=== PATIENT | male | born 1965 | race Caucasian/White ===

== ENCOUNTER 2020-12-09 08:41 | Inpatient (IN) | payer BC ==
[2020-12-09 09:20] LABS: ANION GAP 17.4 mmol/L (5-15); CHLORIDE,CL 100 mmol/L (98-107); SODIUM,NA 137 mmol/L (136-145)
--- NOTE | 2020-12-09 09:32 | EDM.PDOC ---
ED HPI GENERAL MEDICAL PROBLEM - General Chief Complaint: General Stated Complaint: SEVERE NAUSEA Time Seen by Provider: 12/09/20 09:00 Source of Information: Reports: Patient, EMS History Limitations: Reports: No Limitations - History of Present Illness INITIAL COMMENTS - FREE TEXT/NARRATIVE: Patient presents with lightheadedness, cough, vomiting and possible LOC. He is covid positive and has been symptomatic for 2+ weeks; just off quarantine yesterday. Had aches and fever too but gone now. Still has the cough. The last 3-4 days he has had nausea and lightheadedness after eating breakfast; today he vomited also after eating a couple bites. He thinks he passed out for a bit and doesn't remember everything but his called ambulance. He doesn't get lightheaded standing after sitting or lying. He hasn't seen a provider since covid symptoms started. - Related Data Allergies Allergy/AdvReac Type Severity Reaction Status Date / Time No Known Allergies Allergy Verified 12/09/20 08:46 Home Meds: Home Meds . [No Known Home Meds] 02/11/16 [History] Past Medical History - Past Health History Medical/Surgical History: Denies Medical/Surgical History HEENT History: Reports: None Cardiovascular History: Reports: None Respiratory History: Reports: None Gastrointestinal History: Reports: None Other Gastrointestinal History: Bright Red blood after BM x 1 Genitourinary History: Reports: None Musculoskeletal History: Reports: None Neurological History: Reports: None Psychiatric History: Reports: None Endocrine/Metabolic History: Reports: None Hematologic History: Reports: None Immunologic History: Reports: None Oncologic (Cancer) History: Reports: None Dermatologic History: Reports: None - Infectious Disease History Infectious Disease History: Reports: Chicken Pox, Novel Coronavirus Social & Family History - Family History GI: Reports: Colon Polyps - Tobacco Use Tobacco Use Status *Q: Never Tobacco User - Caffeine Use Caffeine Use: Reports: None - Recreational Drug Use Recreational Drug Use: No ED ROS GENERAL - Review of Systems Review Of Systems: See Below Constitutional: Reports: Weakness, Fatigue. Denies: Fever HEENT: Denies: Ear Pain, Throat Pain, Vision Change Respiratory: Reports: Shortness of Breath, Cough. Denies: Sputum Cardiovascular: Reports: Lightheadedness, Syncope. Denies: Chest Pain GI/Abdominal: Reports: Diarrhea (just once a day), Nausea, Vomiting. Denies: Abdominal Pain : Denies: Dysuria, Flank Pain Musculoskeletal: Denies: Neck Pain, Shoulder Pain, Arm Pain, Back Pain, Hand Pain Skin: Denies: Cyanosis, Jaundice, Mottled, Pallor, Diaphoresis Neurological: Reports: Dizziness. Denies: Confusion, Headache, Seizure, Trouble Speaking, Difficulty Walking Psychiatric: Denies: Agitation, Anxiety, Confusion ED EXAM, GENERAL - Physical Exam Exam: See Below Exam Limited By: No Limitations General Appearance: Alert, WD/WN, No Apparent Distress Eye Exam: Bilateral Eye: EOMI, Normal Inspection, PERRL Ears: Normal External Exam, Hearing Grossly Normal Nose: Normal Inspection, No Blood Throat/Mouth: Normal Inspection, Normal Lips, Normal Voice, No Airway Compromise Head: Atraumatic, Normocephalic Neck: Normal Inspection, Full Range of Motion Respiratory/Chest: No Respiratory Distress, No Accessory Muscle Use, Crackles (bilat lungs throughout). No: Rhonchi, Wheezing, Stridor Cardiovascular: Regular Rate, Rhythm, No Murmur GI/Abdominal: Normal Bowel Sounds, Soft, Non-Tender, No Organomegaly, No Distention Back Exam: Normal Inspection, Full Range of Motion. No: CVA Tenderness (L), CVA Tenderness (R) Extremities: Normal Inspection, Normal Range of Motion Neurological: Alert, Oriented, Normal Cognition, No Motor/Sensory Deficits Psychiatric: Normal Affect, Normal Mood Skin Exam: Warm, Dry, Intact, Normal Color, No Rash Course - Vital Signs Last Recorded V/S: Last Vital Signs Temp 97.7 F 12/09/20 08:47 Pulse 67 12/09/20 09:42 Resp 17 12/09/20 09:42 BP 118/79 12/09/20 09:42 Pulse Ox 93 L 12/09/20 09:42 - Orders/Labs/Meds Orders: Active Orders 24 hr Category Date Time Status Patient Status [ADT] Routine ADT 12/09/20 09:52 Ordered CULTURE BLOOD [BC] Stat Lab 12/09/20 09:16 Ordered CULTURE BLOOD [BC] Stat Lab 12/09/20 09:16 Ordered Blood Culture x2 Reflex Set [OM.PC] Stat Oth 12/09/20 09:16 Ordered Isolation [COMM] Routine Oth 12/09/20 08:50 Ordered Labs: Laboratory Tests 1112/09/20 12/09/20 Range/Units 08:30 08:30 09:20 WBC 3.96 L (5.00-10.00) 10^3/uL RBC 5.64 (4.50-6.00) 10^6/uL Hgb 16.4 (13.0-17.0) g/dL Hct 46.4 (40.0-52.0) % MCV 82.3 (82.0-92.0) fL MCH 29.1 (27.0-31.0) pg MCHC 35.3 (32.0-36.0) g/dL RDW 11.6 (11.5-14.5) % Plt Count 159 (150-400) 10^3/uL MPV 10.0 (7.4-10.4) fL Immature Gran % (Auto) 0.3 (0.0-5.0) % Neut % (Auto) 71.9 H (50.0-70.0) % Lymph % (Auto) 21.7 (20.0-40.0) % [place] % (Auto) 6.1 (2.0-8.0) % Eos % (Auto) 0.0 L (1.0-3.0) % Baso % (Auto) 0.0 (0.0-1.0) % Neut # (Auto) 2.85 (2.50-7.00) 10^3/uL Lymph # (Auto) 0.86 L (1.00-4.00) 10^3/uL [place] # (Auto) 0.24 (0.10-0.80) 10^3/uL Eos # (Auto) 0.00 L (0.10-0.30) 10^3/uL Baso # (Auto) 0.00 (0.00-0.10) 10^3/uL Immature Gran # (Auto) 0.01 (0.00-0.50) 10^3/uL Sodium 137 (136-145) mmol/L Potassium 3.4 L (3.5-5.1) mmol/L Chloride 100 (98-107) mmol/L Carbon Dioxide 23.0 (21.0-32.0) mmol/L Anion Gap 17.4 H (5-15) mmol/L BUN 15 (7-18) mg/dL Creatinine 0.97 (0.51-1.17) mg/dL Est Cr Clr Drug Dosing 76.74 mL/min Estimated GFR (MDRD) > 60 mL/min Glucose 113 (70-140) mg/dL Lactic Acid 1.1 (0.4-2.0) mmol/L Calcium 7.6 L (8.7-10.3) mg/dL Total Bilirubin 0.6 (0.2-1.0) mg/dL AST 36 (15-37) U/L ALT 49 (14-63) U/L Alkaline Phosphatase 76 (46-116) U/L Total Protein 6.4 (6.4-8.2) g/dL Albumin 2.87 L (3.40-5.00) g/dL Meds: Medications Discontinued Medications Generic Name Dose Route Start Last Admin Trade Name Freq PRN Reason Stop Dose Admin Ceftriaxone Sodium 1 gm 12/09/20 09:45 Ceftriaxone 1 Gm Vial IVPUSH 12/09/20 09:46 ONETIME ONE - Re-Assessments/Exams Free Text/Narrative Re-Assessment/Exam: 12/09/20 09:53 CXR confirms bilateral infiltrates. Sats dropped to 87-89% on RA after we stopped oxygen for about 10 minutes. On 2 liters still only 92-94%. WBC normal. Lactate and blood cultures pending. Discussed findings and recommendations with patient and he is okay with staying in the hospital; he really wants to get some sleep. Discussed case with Altagracia Chaidez NP who accepted for admission. Patient stable; Rocephin given in ER. Departure - Departure Time of Disposition: 09:50 Disposition: Admitted As Inpatient 65 Condition: Good Clinical Impression: COVID-19, Hypoxemia requiring supplemental oxygen Pneumonia Qualifiers: Pneumonia type: due to unspecified organism Laterality: bilateral Lung loc ation: unspecified part of lung Qualified Code(s): J18.9 - Pneumonia, unspecified organism - Discharge Information Referrals: Kathleen Motta NP [Primary Care Provider] - Forms: ED Department Discharge Sepsis Event Note (ED) - Evaluation Sepsis Screening Result: No Definite Risk - Focused Exam Vital Signs: Vital Signs Temp Pulse Resp BP Pulse Ox 12/09/20 09:42 67 17 118/79 93 L 12/09/20 09:22 64 20 132/74 93 L 12/09/20 09:00 70 16 136/70 95 12/09/20 08:47 97.7 F 68 20 137/69 96 12/09/20 08:45 67 14 124/76 96 - My Orders Last 24 Hours: My Active Orders 12/09/20 08:50 Isolation [COMM] Routine 12/09/20 09:16 CULTURE BLOOD [BC] Stat CULTURE BLOOD [BC] Stat Blood Culture x2 Reflex Set [OM.PC] Stat 12/09/20 09:52 Patient Status [ADT] Routine - Assessment/Plan Last 24 Hours: My Active Orders 12/09/20 08:50 Isolation [COMM] Routine 12/09/20 09:16 CULTURE BLOOD [BC] Stat CULTURE BLOOD [BC] Stat Blood Culture x2 Reflex Set [OM.PC] Stat 12/09/20 09:52 Patient Status [ADT] Routine
[2020-12-09] MEDS ORDERED: cefTRIAXone 1 GM Vial IVPUSH ONE (09:45)
--- NOTE | 2020-12-09 10:07 | CR ---
[id number] RAD/RAD Chest PA And Lateral EXAM: RAD Chest PA And Lateral INDICATION: COVID + COMPARISON: None. DISCUSSION: Cardiomediastinal silhouette is normal in size and contour. No infiltrate, effusion, pneumothorax, or edema. Patchy pulmonary infiltrates bilaterally most pronounced lung bases. IMPRESSION: Patchy pulmonary infiltrates bilaterally most pronounced at the lung bases. Findings are likely infectious/inflammatory in nature as can be seen with atypical/viral pneumonia Yamil Romo DO 12/09/20 1006 Thank you for allowing us to participate in the care of your patient.
--- NOTE | 2020-12-09 10:57 | PCM.HP.2 ---
H&P History of Present Illness - General Date of Service: 12/09/20 Admit Problem/Dx: Admission Diagnosis/Problem Admission Diagnosis/Problem Hypoxemia requiring supplemental oxygen - Related Data Allergies/Adverse Reactions: Allergies Allergy/AdvReac Type Severity Reaction Status Date / Time No Known Allergies Allergy Verified 12/09/20 08:46 Home Medications: Home Meds . [No Known Home Meds] 02/11/16 [History] Past Medical History - Past Health History Medical/Surgical History: Denies Medical/Surgical History HEENT History: Reports: None Cardiovascular History: Reports: None Respiratory History: Reports: None Gastrointestinal History: Reports: None Other Gastrointestinal History: Bright Red blood after BM x 1 Genitourinary History: Reports: None Musculoskeletal History: Reports: None Neurological History: Reports: None Psychiatric History: Reports: None Endocrine/Metabolic History: Reports: None Hematologic History: Reports: None Immunologic History: Reports: None Oncologic (Cancer) History: Reports: None Dermatologic History: Reports: None - Infectious Disease History Infectious Disease History: Reports: Chicken Pox, Novel Coronavirus Social & Family History - Family History GI: Reports: Colon Polyps - Tobacco Use Tobacco Use Status *Q: Never Tobacco User - Caffeine Use Caffeine Use: Reports: None - Recreational Drug Use Recreational Drug Use: No H&P Review of Systems - Review of Systems: Review Of Systems: See Below General: Reports: Fever (Last week and then reoccurred on Monday and Monday), Fatigue, Decreased Appetite. Denies: Chills HEENT: Reports: Headaches (previously, now resolved), Sore Throat (previously now resolved) Pulmonary: Reports: Cough. Denies: Shortness of Breath, Wheezing, Pleuritic Chest Pain Cardiovascular: Reports: Lightheadedness, Syncope (syncopal episode this morning) Gastrointestinal: Reports: Diarrhea, Nausea (only in the morning) Genitourinary: Reports: No Symptoms Musculoskeletal: Reports: No Symptoms Skin: Reports: No Symptoms Psychiatric: Reports: No Symptoms Neurological: Reports: No Symptoms Hematologic/Lymphatic: Reports: No Symptoms Immunologic: Reports: No Symptoms Exam - Exam Exam: See Below - Vital Signs Vital Signs: Last Vital Signs Temp 98.2 F 12/09/20 10:28 Pulse 70 12/09/20 10:28 Resp 20 12/09/20 10:28 BP 138/69 12/09/20 10:28 Pulse Ox 94 L 12/09/20 10:28 Weight: 166 lb - Exam Quality Assessment: Supplemental Oxygen, DVT Prophylaxis General: Alert, Oriented, Cooperative. No: Mild Distress HEENT: Conjunctiva Clear, Mucosa Moist & [place] Neck: Supple, Trachea Midline Lungs: Decreased Breath Sounds, Crackles. No: Wheezing Cardiovascular: Regular Rate, Regular Rhythm. No: Systolic Murmur GI/Abdominal Exam: Normal Bowel Sounds, Soft, Non-Tender, No Distention (Male) Exam: Deferred Rectal (Males) Exam: Deferred Back Exam: Normal Inspection, Full Range of Motion Extremities: Normal Inspection, Normal Range of Motion, Non-Tender, No Pedal Edema, Normal Capillary Refill Peripheral Pulses: 2+: Dorsalis Pedis (L), Dorsalis Pedis (R) Skin: Warm, Dry, Intact Neuro Extensive - Mental Status: Alert, Oriented x3, Normal Mood/Affect, Normal Cognition, Memory Intact Psychiatric: Alert, Normal Affect, Normal Mood - Patient Data Lab Results Last 24 hrs: Laboratory Results - last 24 hr 12/09/20 12/09/20 12/09/20 Range/Units 08:30 08:30 08:30 WBC 3.96 L (5.00-10.00) 10^3/uL RBC 5.64 (4.50-6.00) 10^6/uL Hgb 16.4 (13.0-17.0) g/dL Hct 46.4 (40.0-52.0) % MCV 82.3 (82.0-92.0) fL MCH 29.1 (27.0-31.0) pg MCHC 35.3 (32.0-36.0) g/dL RDW 11.6 (11.5-14.5) % Plt Count 159 (150-400) 10^3/uL MPV 10.0 (7.4-10.4) fL Immature Gran % (Auto) 0.3 (0.0-5.0) % Neut % (Auto) 71.9 H (50.0-70.0) % Lymph % (Auto) 21.7 (20.0-40.0) % [place] % (Auto) 6.1 (2.0-8.0) % Eos % (Auto) 0.0 L (1.0-3.0) % Baso % (Auto) 0.0 (0.0-1.0) % Neut # (Auto) 2.85 (2.50-7.00) 10^3/uL Lymph # (Auto) 0.86 L (1.00-4.00) 10^3/uL [place] # (Auto) 0.24 (0.10-0.80) 10^3/uL Eos # (Auto) 0.00 L (0.10-0.30) 10^3/uL Baso # (Auto) 0.00 (0.00-0.10) 10^3/uL Immature Gran # (Auto) 0.01 (0.00-0.50) 10^3/uL Sodium 137 (136-145) mmol/L Potassium 3.4 L (3.5-5.1) mmol/L Chloride 100 (98-107) mmol/L Carbon Dioxide 23.0 (21.0-32.0) mmol/L Anion Gap 17.4 H (5-15) mmol/L BUN 15 (7-18) mg/dL Creatinine 0.97 (0.51-1.17) mg/dL Est Cr Clr Drug Dosing 76.74 mL/min Estimated GFR (MDRD) > 60 mL/min Glucose 113 (70-140) mg/dL Lactic Acid (0.4-2.0) mmol/L Calcium 7.6 L (8.7-10.3) mg/dL Total Bilirubin 0.6 (0.2-1.0) mg/dL AST 36 (15-37) U/L ALT 49 (14-63) U/L Alkaline Phosphatase 76 (46-116) U/L C-Reactive Protein 5.3 H (0.0-0.9) mg/dL Total Protein 6.4 (6.4-8.2) g/dL Albumin 2.87 L (3.40-5.00) g/dL 12/09/20 Range/Units 09:20 WBC (5.00-10.00) 10^3/uL RBC (4.50-6.00) 10^6/uL Hgb (13.0-17.0) g/dL Hct (40.0-52.0) % MCV (82.0-92.0) fL MCH (27.0-31.0) pg MCHC (32.0-36.0) g/dL RDW (11.5-14.5) % Plt Count (150-400) 10^3/uL MPV (7.4-10.4) fL Immature Gran % (Auto) (0.0-5.0) % Neut % (Auto) (50.0-70.0) % Lymph % (Auto) (20.0-40.0) % [place] % (Auto) (2.0-8.0) % Eos % (Auto) (1.0-3.0) % Baso % (Auto) (0.0-1.0) % Neut # (Auto) (2.50-7.00) 10^3/uL Lymph # (Auto) (1.00-4.00) 10^3/uL [place] # (Auto) (0.10-0.80) 10^3/uL Eos # (Auto) (0.10-0.30) 10^3/uL Baso # (Auto) (0.00-0.10) 10^3/uL Immature Gran # (Auto) (0.00-0.50) 10^3/uL Sodium (136-145) mmol/L Potassium (3.5-5.1) mmol/L Chloride (98-107) mmol/L Carbon Dioxide (21.0-32.0) mmol/L Anion Gap (5-15) mmol/L BUN (7-18) mg/dL Creatinine (0.51-1.17) mg/dL Est Cr Clr Drug Dosing mL/min Estimated GFR (MDRD) mL/min Glucose (70-140) mg/dL Lactic Acid 1.1 (0.4-2.0) mmol/L Calcium (8.7-10.3) mg/dL Total Bilirubin (0.2-1.0) mg/dL AST (15-37) U/L ALT (14-63) U/L Alkaline Phosphatase (46-116) U/L C-Reactive Protein (0.0-0.9) mg/dL Total Protein (6.4-8.2) g/dL Albumin (3.40-5.00) g/dL Result Diagrams: 12/10/20 08:20 12/10/20 08:20 Sepsis Event Note - Evaluation Sepsis Screening Result: No Definite Risk - Focused Exam Vital Signs: Vital Signs Temp Pulse Resp BP Pulse Ox 12/09/20 10:28 98.2 F 70 20 138/69 94 L 12/09/20 09:42 67 17 118/79 93 L 12/09/20 09:22 64 20 132/74 93 L 12/09/20 09:00 70 16 136/70 95 12/09/20 08:47 97.7 F 68 20 137/69 96 12/09/20 08:45 67 14 124/76 96 Problem List Initiated/Reviewed/Updated: Yes Orders Last 24hrs: Active Orders 24 hr Category Date Time Status Patient Status [ADT] Routine ADT 12/09/20 09:52 Active CULTURE BLOOD [BC] Stat Lab 12/09/20 09:20 Received CULTURE BLOOD [BC] Stat Lab 12/09/20 09:35 Received Blood Culture x2 Reflex Set [OM.PC] Stat Oth 12/09/20 09:16 Ordered Isolation [COMM] Routine Oth 12/09/20 08:50 Ordered Assessment/Plan Comment:: HPI summary: Christopher is a 55yM patient who arrived to the ED by EMS this morning for concerns of COVID-19 symptoms including nausea and vomiting this morning after breakfast and reported syncopal episode of short duration. Patient had initial onset of COVID symptoms on 11/29 and tested positive on 12/04 at [facility]. Patient c/o feeling nauseated the past 3-4 mornings at breakfas t and lightheaded in the morning. Patient had headache, sore throat, body aches and fever initially, had reoccurrence of fever over he weekend. He continues to cough. Patient's called [place] ambulance after possible syncopal episode. Of note patient is not vaccinated. ED course: Patient 87-88% on room air, vitals otherwise stable; afebrile. No orthostatic hypotension symptoms. Lung sounds with crackles t/o. CXR indicates bilateral infiltrates consistent with infectious/inflammatory process which can be seen with atypical or viral pneumonia. BC x 2 ordered. WBC 3.96 (N 71.9%), Hgb 16.4, Plt 159. Na 137, K 3.4, BUN 15, Creatinine 0.97, LFTs WNL, Albumin 2.87, CRP 5.3, Lactic acid 1.1. Rocephin 1g given in ER for possible bacterial pneumonia. Patient admitted inpatient status. Hospital course: 12/09/20: Patient denies significant SOB or wheezing, has been coughing. He is most concerned about the nausea in the morning and the possible syncopal episode this morning. Vitals stable, afebrile. Lung sounds diminished with crackles bilaterally. Exam otherwise rather unremarkable. Repeat labs in am. Hospitalization problems and plan: # COVID-19 # Pneumonia - will provide empiric antibiotic treatment due to mild neutrophilia, blood cultures pending # Hypoxia # Elevated CRP - Supplemental oxygen to maintain O2 sat > 92% - BC x 2 pending - Continue rocephin 1g IV daily - Remdesevir 200mg IV x 1 dose, then 100mg IV daily x 4 doses - Dexamethasone 6mg PO daily - Lovenox 40mg subq daily - Adjunctive therapy: Zinc, vitamin C and vitamin D - Repeat labs in am CBC, CMP, CRP and Mg # Hypokalemia, mild - KDur 20 mEq today Chronic, stable conditions: # Hyperlipidiemia - no medications; LDL 109 09/04/20 # GERD - continue prilosec 20mg PO daily # Obesity Hospitalization details: # FEN: Oral fluids, K 3.4 - oral supplementation, regular diet # PPX: Lovenox 40mg subq daily; prilosec 20mg PO daily # Code status: FULL CODE # Emergency contact: Karlie [phone] # Disposition: Patient admitted to inpatient status as I anticipate > 2 midnights for treatment of COVID-19, Pneumonia, requiring supplemental oxygen at 2-3L to maintain O2 sat > 92%. - Mortality Measure Prognosis:: Good
[2020-12-09] MEDS ORDERED: REMDESIVIR 200 MG in Sodium Chloride 0.9% 250 ML IV ONE (11:26)
[2020-12-09] MEDS ORDERED: Potassium Chloride 10 MEQ Tab.ER PO ONE (11:28)
[2020-12-09] MEDS ORDERED: Sodium Chloride 0.9% 50 ML IV SCH (12:00)
[2020-12-09] MEDS: Dexamethasone 4 MG Tab PO SCH (12:04)
[2020-12-09] MEDS: Enoxaparin 40 MG/0.4 ML Syringe SUBCUT SCH (12:05)
[2020-12-09] MEDS: Zinc (Zinc Gluconate) 50 MG Tab PO SCH (12:57)
[2020-12-09] MEDS: Cholecalciferol (Vitamin D3) 25 MCG Tab PO SCH (12:57)
[2020-12-09] MEDS: Ascorbic Acid 500 MG Tab PO SCH ×2 (12:58→20:38)
[2020-12-10] MEDS: Ascorbic Acid 500 MG Tab PO SCH ×3 (08:12→20:00)
[2020-12-10] MEDS: Dexamethasone 4 MG Tab PO SCH (08:12)
[2020-12-10] MEDS: Zinc (Zinc Gluconate) 50 MG Tab PO SCH (08:12)
[2020-12-10] MEDS: Cholecalciferol (Vitamin D3) 25 MCG Tab PO SCH (08:12)
[2020-12-10 08:50] LABS: ANION GAP 17.6 mmol/L (5-15); CHLORIDE,CL 104 mmol/L (98-107); SODIUM,NA 139 mmol/L (136-145)
--- NOTE | 2020-12-10 11:22 | PCM.PN ---
- General Info Date of Service: 12/10/20 Functional Status: Reports: Pain Controlled, Tolerating Diet, Ambulating, Urinating, Incentive Spirometry. Denies: New Symptoms - Review of Systems General: Reports: Fatigue, Appetite (improved today). Denies: Fever, Chills HEENT: Reports: No Symptoms. Denies: Headaches, Sore Throat Pulmonary: Reports: Cough. Denies: Shortness of Breath, Wheezing Cardiovascular: Reports: No Symptoms. Denies: Edema, Lightheadedness Gastrointestinal: Reports: Other (heartburn overnight). Denies: Nausea Genitourinary: Reports: No Symptoms Musculoskeletal: Reports: No Symptoms Skin: Reports: No Symptoms Neurological: Reports: No Symptoms. Denies: Syncope Psychiatric: Reports: No Symptoms - Patient Data Vitals - Most Recent: Last Vital Signs Temp 98.1 F 12/10/20 10:06 Pulse 69 12/10/20 10:06 Resp 20 12/10/20 10:06 BP 131/76 12/10/20 10:06 Pulse Ox 95 12/10/20 10:06 Weight - Most Recent: 171 lb 1.259 oz I&O - Last 24 Hours: Intake & Output 12/09/20 12/10/20 12/10/20 22:59 06:59 14:59 Intake Total 400 100 Balance 400 100 Lab Results Last 24 Hours: Laboratory Results - last 24 hr 12/10/20 12/10/20 Range/Units 08:20 08:20 WBC 6.78 (5.00-10.00) 10^3/uL RBC 5.23 (4.50-6.00) 10^6/uL Hgb 15.1 (13.0-17.0) g/dL Hct 44.3 (40.0-52.0) % MCV 84.7 (82.0-92.0) fL MCH 28.9 (27.0-31.0) pg MCHC 34.1 (32.0-36.0) g/dL RDW 11.6 (11.5-14.5) % Plt Count 202 (150-400) 10^3/uL MPV 9.5 (7.4-10.4) fL Immature Gran % (Auto) 0.1 (0.0-5.0) % Neut % (Auto) 84.5 H (50.0-70.0) % Lymph % (Auto) 10.8 L (20.0-40.0) % Davidson % (Auto) 4.6 (2.0-8.0) % Eos % (Auto) 0.0 L (1.0-3.0) % Baso % (Auto) 0.0 (0.0-1.0) % Neut # (Auto) 5.73 (2.50-7.00) 10^3/uL Lymph # (Auto) 0.73 L (1.00-4.00) 10^3/uL Davidson # (Auto) 0.31 (0.10-0.80) 10^3/uL Eos # (Auto) 0.00 L (0.10-0.30) 10^3/uL Baso # (Auto) 0.00 (0.00-0.10) 10^3/uL Immature Gran # (Auto) 0.01 (0.00-0.50) 10^3/uL Sodium 139 (136-145) mmol/L Potassium 4.1 (3.5-5.1) mmol/L Chloride 104 (98-107) mmol/L Carbon Dioxide 21.5 (21.0-32.0) mmol/L Anion Gap 17.6 H (5-15) mmol/L BUN 15 (7-18) mg/dL Creatinine 0.78 (0.51-1.17) mg/dL Est Cr Clr Drug Dosing 95.43 mL/min Estimated GFR (MDRD) > 60 mL/min Glucose 120 (70-140) mg/dL Calcium 8.2 L (8.7-10.3) mg/dL Magnesium 2.3 (1.8-2.4) mg/dL Total Bilirubin 0.5 (0.2-1.0) mg/dL AST 37 (15-37) U/L ALT 59 (14-63) U/L Alkaline Phosphatase 71 (46-116) U/L C-Reactive Protein 5.9 H (0.0-0.9) mg/dL Total Protein 6.4 (6.4-8.2) g/dL Albumin 2.71 L (3.40-5.00) g/dL Prem Results Last 24 Hours: Microbiology 12/09/20 09:35 Aerobic Blood Culture - Preliminary Blood - Venous NO GROWTH AFTER 1 DAY Anaerobic Blood Culture - Preliminary NO GROWTH AFTER 1 DAY 12/09/20 09:20 Aerobic Blood Culture - Preliminary Blood - Venous - Lab Draw NO GROWTH AFTER 1 DAY Anaerobic Blood Culture - Preliminary NO GROWTH AFTER 1 DAY Med Orders - Current: Current Medications Ascorbic Acid (Ascorbic Acid 500 Mg Tab) 1,[address] [facility] Last Admin: 12/10/20 08:12 Dose: 1,000 mg Documented by: Ceftriaxone Sodium (Ceftriaxone 1 Gm Vial) [address] [facility] Cholecalciferol (Cholecalciferol (Vitamin D3) 25 Mcg Tab) [address] [facility] Last Admin: 12/10/20 08:12 Dose: 25 mcg Documented by: Dexamethasone (Dexamethasone 4 Mg Tab) [address] [facility] Last Admin: 12/10/20 08:12 Dose: 6 mg Documented by: Enoxaparin Sodium (Enoxaparin 40 Mg/0.4 Ml Syringe) [address] [facility] Last Admin: 12/09/20 12:05 Dose: 40 mg Documented by: Sodium Chloride (Normal Saline) 50 mls @ 125 mls/hr IV ASDIRECTED [facility] Remdesivir 100 mg/ Sodium (Chloride) 250 mls @ 250 mls/hr IV Q24H [facility] Zinc Gluconate (Zinc (Zinc Gluconate) 50 Mg Tab) [address] [facility] Last Admin: 12/10/20 08:12 Dose: 50 mg Documented by: Discontinued Medications Ceftriaxone Sodium (Ceftriaxone 1 Gm Vial) 1 gm IVPUSH ONETIME ONE Stop: 12/09/20 09:46 Last Admin: 12/09/20 10:21 Dose: 1 gm Documented by: Remdesivir 200 mg/ Sodium (Chloride) 250 mls @ 250 mls/hr IV ONETIME ONE Stop: 12/09/20 11:27 Last Admin: 12/09/20 13:02 Dose: 250 mls/hr Documented by: Potassium Chloride (Potassium Chloride 10 Meq Tab.Er) 20 meq PO ONETIME ONE Stop: 12/09/20 11:29 Last Admin: 12/09/20 12:04 Dose: 20 meq Documented by: - Exam Quality Assessment: Supplemental Oxygen, DVT Prophylaxis General: Alert, Oriented, Cooperative, No Acute Distress HEENT: Pupils Equal, Pupils Reactive, Mucous Membr. Moist/[place] Neck: Supple, Trachea Midline Lungs: Decreased Breath Sounds, Crackles. No: Rhonchi, Wheezing Cardiovascular: Regular Rate, Regular Rhythm, No Murmurs GI/Abdominal Exam: Normal Bowel Sounds, Soft, Non-Tender, No Distention (Male) Exam: Deferred Back Exam: Normal Inspection, Full Range of Motion Extremities: Normal Inspection, Normal Range of Motion, Non-Tender, No Pedal Edema, Normal Capillary Refill Peripheral Pulses: 2+: Dorsalis Pedis (L), Dorsalis Pedis (R) Skin: Warm, Dry, Intact Neurological: No New Focal Deficit Psy/Mental Status: Alert, Normal Affect, Normal Mood - Patient Data Lab Results Last 24 hrs: Laboratory Results - last 24 hr 12/10/20 12/10/20 Range/Units 08:20 08:20 WBC 6.78 (5.00-10.00) 10^3/uL RBC 5.23 (4.50-6.00) 10^6/uL Hgb 15.1 (13.0-17.0) g/dL Hct 44.3 (40.0-52.0) % MCV 84.7 (82.0-92.0) fL MCH 28.9 (27.0-31.0) pg MCHC 34.1 (32.0-36.0) g/dL RDW 11.6 (11.5-14.5) % Plt Count 202 (150-400) 10^3/uL MPV 9.5 (7.4-10.4) fL Immature Gran % (Auto) 0.1 (0.0-5.0) % Neut % (Auto) 84.5 H (50.0-70.0) % Lymph % (Auto) 10.8 L (20.0-40.0) % Davidson % (Auto) 4.6 (2.0-8.0) % Eos % (Auto) 0.0 L (1.0-3.0) % Baso % (Auto) 0.0 (0.0-1.0) % Neut # (Auto) 5.73 (2.50-7.00) 10^3/uL Lymph # (Auto) 0.73 L (1.00-4.00) 10^3/uL Davidson # (Auto) 0.31 (0.10-0.80) 10^3/uL Eos # (Auto) 0.00 L (0.10-0.30) 10^3/uL Baso # (Auto) 0.00 (0.00-0.10) 10^3/uL Immature Gran # (Auto) 0.01 (0.00-0.50) 10^3/uL Sodium 139 (136-145) mmol/L Potassium 4.1 (3.5-5.1) mmol/L Chloride 104 (98-107) mmol/L Carbon Dioxide 21.5 (21.0-32.0) mmol/L Anion Gap 17.6 H (5-15) mmol/L BUN 15 (7-18) mg/dL Creatinine 0.78 (0.51-1.17) mg/dL Est Cr Clr Drug Dosing 95.43 mL/min Estimated GFR (MDRD) > 60 mL/min Glucose 120 (70-140) mg/dL Calcium 8.2 L (8.7-10.3) mg/dL Magnesium 2.3 (1.8-2.4) mg/dL Total Bilirubin 0.5 (0.2-1.0) mg/dL AST 37 (15-37) U/L ALT 59 (14-63) U/L Alkaline Phosphatase 71 (46-116) U/L C-Reactive Protein 5.9 H (0.0-0.9) mg/dL Total Protein 6.4 (6.4-8.2) g/dL Albumin 2.71 L (3.40-5.00) g/dL Result Diagrams: 12/10/20 08:20 12/10/20 08:20 Prem Results Last 24 hrs: Microbiology 12/09/20 09:35 Aerobic Blood Culture - Preliminary Blood - Venous NO GROWTH AFTER 1 DAY Anaerobic Blood Culture - Preliminary NO GROWTH AFTER 1 DAY 12/09/20 09:20 Aerobic Blood Culture - Preliminary Blood - Venous - Lab Draw NO GROWTH AFTER 1 DAY Anaerobic Blood Culture - Preliminary NO GROWTH AFTER 1 DAY Sepsis Event Note - Evaluation Sepsis Screening Result: No Definite Risk - Focused Exam Vital Signs: Vital Signs Temp Pulse Resp BP Pulse Ox 12/10/20 10:06 98.1 F 69 20 131/76 95 12/10/20 06:29 97.5 F 58 L 20 125/76 95 12/10/20 02:56 97.9 F 65 20 114/72 92 L - Problem List Review Problem List Initiated/Reviewed/Updated: Yes - My Orders Last 24 Hours: My Active Orders 12/09/20 11:30 Enoxaparin [Lovenox] 40 mg SUBCUT Q24H dexAMETHasone 6 mg PO DAILY 12/09/20 12:11 Resuscitation Status Routine 12/09/20 12:45 Ascorbic Acid [Vitamin C] 1,000 mg PO BID Cholecalciferol (Vitamin D3) [Vitamin D3] 25 mcg PO DAILY Zinc Gluconate [Zinc] 50 mg PO DAILY 12/09/20 14:20 Vital Signs [RC] 03,07,11,15,19,23 12/09/20 14:21 Activity as Tolerated [RC] .Routine 12/09/20 Dinner Regular Diet [DIET] 12/10/20 11:06 Incentive Spirometry [RT Incentive Spirometry] [RC] Q1HWA 12/10/20 11:30 Remdesivir 100 mg Sodium Chloride 0.9% [Normal Saline] 250 ml IV Q24H cefTRIAXone [Rocephin] 1 gm IVPUSH Q24H 12/11/20 05:11 CBC WITH AUTO DIFF [HEME] AM CMP [COMPREHENSIVE METABOLIC PN,CMP] [CHEM] AM CRP [C-REACTIVE PROTEIN] [CHEM] AM MG [MAGNESIUM] [CHEM] AM - Plan Plan:: HPI summary: Christopher is a 55yM patient who arrived to the ED by EMS this morning for concerns of COVID-19 symptoms including nausea and vomiting this morning after breakfast and reported syncopal episode of short duration. Patient had initial onset of COVID symptoms on 11/29 and tested positive on 12/04 at [facility]. Patient c/o feeling nauseated the past 3-4 mornings at [facility] and lightheaded in the morning. Patient had headache, sore throat, body aches and fever initially, had reoccurrence of fever over he weekend. He continues to cough. Patient's called [place] ambulance after possible syncopal episode. Of note patient is not vaccinated. ED course: Patient 87-88% on room air, vitals otherwise stable; afebrile. No orthostatic hypotension symptoms. Lung sounds with crackles t/o. CXR indicates bilateral infiltrates consistent with infectious/inflammatory process which can be seen with atypical or viral pneumonia. BC x 2 ordered. WBC 3.96 (N 71.9%), Hgb 16.4, Plt 159. Na 137, K 3.4, BUN 15, Creatinine 0.97, LFTs WNL, Albumin 2.87, CRP 5.3, Lactic acid 1.1. Rocephin 1g given in ER for possible bacterial pneumonia. Patient admitted inpatient status. Hospital course: 12/09/20: Patient denies significant SOB or wheezing, has been coughing. He is most concerned about the nausea in the morning and the possible syncopal episode this morning. Vitals stable, afebrile. Lung sounds diminished with crackles bilaterally. Exam otherwise rather unremarkable. Repeat labs in am. 12/10/20: No calls overnight. Denies nausea this am, appetite improving. No lightheadedness symptoms or concerns of syncope today. Cough continues. Reports heartburn overnight, took prilosec for 2 weeks and then changed his diet, did not have EGD as recommended by physician in [place] due to concerns of getting COVID in hospital. Vitals stable, afebrile. Remains on 2-3L NC to maintain O2 sat > 92%. Lung sounds diminished, crackles bilaterally. No significant rhonchi or wheeze. WBC 6.78, Hgb 15.1, Plt 202. Na 139, K 4.1, BUN 15, Creatinine 0.78, Mg 2.3, LFT's WNL, CRP 5.9. BC NGTD x 1 day. Repeat labs in am. Hospitalization problems and plan: # COVID-19 # Pneumonia - will provide empiric antibiotic treatment due to mild neutrophilia, blood cultures pending, CXR not classic for COVID pneumonia and reoccurrence of fever over the weekend # Hypoxia # Elevated CRP - 5.9 today - Supplemental oxygen to maintain O2 sat > 92% - BC x 2 NGTD x 1 day - Continue rocephin 1g IV daily - Continue Remdesevir 200mg IV x 1 dose, then 100mg IV daily x 4 doses until 12/13/20 - Continue Dexamethasone 6mg PO daily - Continue Lovenox 40mg subq daily - Continue Adjunctive therapy: Zinc, vitamin C and vitamin D - Incentive spirometry 10x/hr while awake - Repeat labs in am CBC, CMP, CRP and Mg # Hypokalemia, mild. - K 4.1 today - Repeat in am Chronic, stable conditions: # Hyperlipidiemia - no medications; LDL 109 09/04/20 # GERD - continue PPI 20mg PO daily; consider EGD as outpatient to evaluate heartburn symptoms # Obesity Hospitalization details: # FEN: Oral fluids, electrolytes stable, regular diet # PPX: Lovenox 40mg subq daily; pantoprazole 20mg PO daily # Code status: FULL CODE # Emergency contact: Karlie Beyer [phone] # Disposition: Patient to remain on inpatient status for treatment of above conditions. Last expected dose of remdesevir planned for 12/13/20, possible discharge Monday vs Monday based on clinical course and based on continued supplemental oxygen which would require home oxygen delivery on Monday12/14/20.
[2020-12-10] MEDS: cefTRIAXone 1 GM Vial IVPUSH SCH (12:00)
[2020-12-10] MEDS: REMDESIVIR 100 MG in Sodium Chloride 0.9% 250 ML IV SCH (12:00)
[2020-12-10] MEDS: Enoxaparin 40 MG/0.4 ML Syringe SUBCUT SCH (12:17)
[2020-12-10] MEDS ORDERED: Simethicone 80 MG Tab.Chew PO PRN (18:12)
[2020-12-11] MEDS: Pantoprazole 20 MG Tab, Delayed Release PO SCH ×2 (06:02→06:41)
[2020-12-11 08:09] LABS: ANION GAP 12.9 mmol/L (5-15); CHLORIDE,CL 104 mmol/L (98-107); SODIUM,NA 141 mmol/L (136-145)
[2020-12-11] MEDS: Ascorbic Acid 500 MG Tab PO SCH ×2 (08:48→20:05)
[2020-12-11] MEDS: Cholecalciferol (Vitamin D3) 25 MCG Tab PO SCH ×2 (08:48→10:49)
[2020-12-11] MEDS: Dexamethasone 4 MG Tab PO SCH (08:49)
[2020-12-11] MEDS: Zinc (Zinc Gluconate) 50 MG Tab PO SCH (08:49)
--- NOTE | 2020-12-11 10:36 | PCM.PN ---
- General Info Date of Service: 12/11/20 Functional Status: Reports: Pain Controlled, Tolerating Diet, Ambulating, Urinating, Incentive Spirometry (3500ml). Denies: New Symptoms - Review of Systems General: Reports: Fatigue. Denies: Fever, Chills HEENT: Reports: No Symptoms Pulmonary: Reports: Cough, Sputum. Denies: Pleuritic Chest Pain, Hemoptysis, Wheezing Cardiovascular: Reports: No Symptoms. Denies: Lightheadedness Gastrointestinal: Reports: No Symptoms Genitourinary: Reports: No Symptoms Musculoskeletal: Reports: No Symptoms Skin: Reports: No Symptoms Neurological: Reports: No Symptoms. Denies: Syncope, Weakness Psychiatric: Reports: No Symptoms - Patient Data Vitals - Most Recent: Last Vital Signs Temp 97.2 F 12/11/20 06:15 Pulse 67 12/11/20 06:15 Resp 18 12/11/20 06:15 BP 137/79 12/11/20 06:15 Pulse Ox 94 L 12/11/20 06:15 Weight - Most Recent: 171 lb 1.259 oz I&O - Last 24 Hours: Intake & Output 12/10/20 12/11/20 12/11/20 22:59 06:59 14:59 Intake Total 370 200 Balance 370 200 Lab Results Last 24 Hours: Laboratory Results - last 24 hr 12/11/20 12/11/20 12/11/20 Range/Units 07:20 07:20 07:20 WBC 7.51 (5.00-10.00) 10^3/uL RBC 5.31 (4.50-6.00) 10^6/uL Hgb 15.5 (13.0-17.0) g/dL Hct 45.4 (40.0-52.0) % MCV 85.5 (82.0-92.0) fL MCH 29.2 (27.0-31.0) pg MCHC 34.1 (32.0-36.0) g/dL RDW 11.6 (11.5-14.5) % Plt Count 240 (150-400) 10^3/uL MPV 9.6 (7.4-10.4) fL Immature Gran % (Auto) 0.1 (0.0-5.0) % Neut % (Auto) 83.8 H (50.0-70.0) % Lymph % (Auto) 12.4 L (20.0-40.0) % Kerr % (Auto) 3.7 (2.0-8.0) % Eos % (Auto) 0.0 L (1.0-3.0) % Baso % (Auto) 0.0 (0.0-1.0) % Neut # (Auto) 6.29 (2.50-7.00) 10^3/uL Lymph # (Auto) 0.93 L (1.00-4.00) 10^3/uL Kerr # (Auto) 0.28 (0.10-0.80) 10^3/uL Eos # (Auto) 0.00 L (0.10-0.30) 10^3/uL Baso # (Auto) 0.00 (0.00-0.10) 10^3/uL Immature Gran # (Auto) 0.01 (0.00-0.50) 10^3/uL D-Dimer, Quantitative 646 H (<400) ng/mL Sodium 141 (136-145) mmol/L Potassium 4.3 (3.5-5.1) mmol/L Chloride 104 (98-107) mmol/L Carbon Dioxide 28.4 (21.0-32.0) mmol/L Anion Gap 12.9 (5-15) mmol/L BUN 15 (7-18) mg/dL Creatinine 0.93 (0.51-1.17) mg/dL Est Cr Clr Drug Dosing 80.04 mL/min Estimated GFR (MDRD) > 60 mL/min Glucose 101 (70-140) mg/dL Calcium 8.3 L (8.7-10.3) mg/dL Magnesium 2.1 (1.8-2.4) mg/dL Total Bilirubin 0.5 (0.2-1.0) mg/dL AST 37 (15-37) U/L ALT 66 H (14-63) U/L Alkaline Phosphatase 70 (46-116) U/L C-Reactive Protein 3.1 H (0.0-0.9) mg/dL Total Protein 6.3 L (6.4-8.2) g/dL Albumin 2.72 L (3.40-5.00) g/dL Prem Results Last 24 Hours: Microbiology 12/09/20 09:35 Aerobic Blood Culture - Preliminary Blood - Venous NO GROWTH AFTER 2 DAYS Anaerobic Blood Culture - Preliminary NO GROWTH AFTER 2 DAYS 12/09/20 09:20 Aerobic Blood Culture - Preliminary Blood - Venous - Lab Draw NO GROWTH AFTER 2 DAYS Anaerobic Blood Culture - Preliminary NO GROWTH AFTER 2 DAYS Med Orders - Current: Current Medications Ascorbic Acid (Ascorbic Acid 500 Mg Tab) 1,000 mg PO BID [facility] Last Admin: 12/11/20 08:48 Dose: 1,000 mg Documented by: Ceftriaxone Sodium (Ceftriaxone 1 Gm Vial) 1 gm IVPUSH Q24H [facility] Last Admin: 12/10/20 12:00 Dose: 1 gm Documented by: Cholecalciferol (Cholecalciferol (Vitamin D3) 25 Mcg Tab) 25 mcg PO DAILY [facility] Last Admin: 12/11/20 08:48 Dose: 25 mcg Documented by: Dexamethasone (Dexamethasone 4 Mg Tab) 6 mg PO DAILY [facility] Last Admin: 12/11/20 08:49 Dose: 6 mg Documented by: Enoxaparin Sodium (Enoxaparin 40 Mg/0.4 Ml Syringe) 40 mg SUBCUT Q24H [facility] Last Admin: 12/10/20 12:17 Dose: 40 mg Documented by: Sodium Chloride (Normal Saline) 50 mls @ 125 mls/hr IV ASDIRECTED [facility] Remdesivir 100 mg/ Sodium (Chloride) 250 mls @ 250 mls/hr IV Q24H [facility] Stop: 12/13/20 11:31 Last Admin: 12/10/20 12:00 Dose: 250 mls/hr Documented by: Pantoprazole Sodium (Pantoprazole 20 Mg Tab, Delayed Release) 20 mg PO ACBREAKFAST [facility] Last Admin: 12/11/20 06:41 Dose: Not Given Documented by: Simethicone (Simethicone 80 Mg Tab.Chew) 80 mg PO Q6H PRN PRN Reason: Heartburn Last Admin: 12/10/20 18:16 Dose: 80 mg Documented by: Zinc Gluconate (Zinc (Zinc Gluconate) 50 Mg Tab) 50 mg PO DAILY [facility] Last Admin: 12/11/20 08:49 Dose: 50 mg Documented by: Discontinued Medications Ceftriaxone Sodium (Ceftriaxone 1 Gm Vial) 1 gm IVPUSH ONETIME ONE Stop: 12/09/20 09:46 Last Admin: 12/09/20 10:21 Dose: 1 gm Documented by: Remdesivir 200 mg/ Sodium (Chloride) 250 mls @ 250 mls/hr IV ONETIME ONE Stop: 12/09/20 11:27 Last Admin: 12/09/20 13:02 Dose: 250 mls/hr Documented by: Potassium Chloride (Potassium Chloride 10 Meq Tab.Er) 20 meq PO ONETIME ONE Stop: 12/09/20 11:29 Last Admin: 12/09/20 12:04 Dose: 20 meq Documented by: - Exam Quality Assessment: Supplemental Oxygen (3L NC), DVT Prophylaxis General: Alert, Oriented, Cooperative, No Acute Distress HEENT: Pupils Equal, Pupils Reactive, Mucous Membr. Moist/[place] Neck: Supple, Trachea Midline Lungs: Decreased Breath Sounds, Crackles (fine), Rhonchi (fine). No: Wheezing Cardiovascular: Regular Rate, Regular Rhythm, No Murmurs GI/Abdominal Exam: Normal Bowel Sounds, Soft, Non-Tender, No Distention (Male) Exam: Deferred Back Exam: Normal Inspection, Full Range of Motion Extremities: Normal Inspection, Normal Range of Motion, Non-Tender, No Pedal Edema, Normal Capillary Refill Peripheral Pulses: 2+: Dorsalis Pedis (L), Dorsalis Pedis (R) Skin: Warm, Dry, Intact Neurological: No New Focal Deficit Psy/Mental Status: Alert, Normal Affect, Normal Mood - Patient Data Lab Results Last 24 hrs: Laboratory Results - last 24 hr 12/11/20 12/11/20 12/11/20 Range/Units 07:20 07:20 07:20 WBC 7.51 (5.00-10.00) 10^3/uL RBC 5.31 (4.50-6.00) 10^6/uL Hgb 15.5 (13.0-17.0) g/dL Hct 45.4 (40.0-52.0) % MCV 85.5 (82.0-92.0) fL MCH 29.2 (27.0-31.0) pg MCHC 34.1 (32.0-36.0) g/dL RDW 11.6 (11.5-14.5) % Plt Count 240 (150-400) 10^3/uL MPV 9.6 (7.4-10.4) fL Immature Gran % (Auto) 0.1 (0.0-5.0) % Neut % (Auto) 83.8 H (50.0-70.0) % Lymph % (Auto) 12.4 L (20.0-40.0) % Kerr % (Auto) 3.7 (2.0-8.0) % Eos % (Auto) 0.0 L (1.0-3.0) % Baso % (Auto) 0.0 (0.0-1.0) % Neut # (Auto) 6.29 (2.50-7.00) 10^3/uL Lymph # (Auto) 0.93 L (1.00-4.00) 10^3/uL Kerr # (Auto) 0.28 (0.10-0.80) 10^3/uL Eos # (Auto) 0.00 L (0.10-0.30) 10^3/uL Baso # (Auto) 0.00 (0.00-0.10) 10^3/uL Immature Gran # (Auto) 0.01 (0.00-0.50) 10^3/uL D-Dimer, Quantitative 646 H (<400) ng/mL Sodium 141 (136-145) mmol/L Potassium 4.3 (3.5-5.1) mmol/L Chloride 104 (98-107) mmol/L Carbon Dioxide 28.4 (21.0-32.0) mmol/L Anion Gap 12.9 (5-15) mmol/L BUN 15 (7-18) mg/dL Creatinine 0.93 (0.51-1.17) mg/dL Est Cr Clr Drug Dosing 80.04 mL/min Estimated GFR (MDRD) > 60 mL/min Glucose 101 (70-140) mg/dL Calcium 8.3 L (8.7-10.3) mg/dL Magnesium 2.1 (1.8-2.4) mg/dL Total Bilirubin 0.5 (0.2-1.0) mg/dL AST 37 (15-37) U/L ALT 66 H (14-63) U/L Alkaline Phosphatase 70 (46-116) U/L C-Reactive Protein 3.1 H (0.0-0.9) mg/dL Total Protein 6.3 L (6.4-8.2) g/dL Albumin 2.72 L (3.40-5.00) g/dL Result Diagrams: 12/11/20 07:20 12/11/20 07:20 Prem Results Last 24 hrs: Microbiology 12/09/20 09:35 Aerobic Blood Culture - Preliminary Blood - Venous NO GROWTH AFTER 2 DAYS Anaerobic Blood Culture - Preliminary NO GROWTH AFTER 2 DAYS 12/09/20 09:20 Aerobic Blood Culture - Preliminary Blood - Venous - Lab Draw NO GROWTH AFTER 2 DAYS Anaerobic Blood Culture - Preliminary NO GROWTH AFTER 2 DAYS Sepsis Event Note - Evaluation Sepsis Screening Result: No Definite Risk - Focused Exam Vital Signs: Vital Signs Temp Pulse Resp BP Pulse Ox 12/11/20 06:15 97.2 F 67 18 137/79 94 L 12/11/20 03:00 97.6 F 64 20 125/81 95 - Problem List Review Problem List Initiated/Reviewed/Updated: Yes - My Orders Last 24 Hours: My Active Orders 12/10/20 11:06 Incentive Spirometry [RT Incentive Spirometry] [RC] Q1HWA 12/10/20 11:30 Remdesivir 100 mg Sodium Chloride 0.9% [Normal Saline] 250 ml IV Q24H cefTRIAXone [Rocephin] 1 gm IVPUSH Q24H 12/11/20 07:30 Pantoprazole 20 mg PO ACBREAKFAST 12/11/20 10:32 CTA Chest W Contrast [Ang Chest] [CT] Routine - Plan Plan:: HPI summary: Christopher is a 55yM patient who arrived to the ED by EMS this morning for concerns of COVID-19 symptoms including nausea and vomiting this morning after breakfast and reported syncopal episode of short duration. Patient had initial onset of COVID symptoms on 11/29 and tested positive on 12/04 at [facility]. Patient c/o feeling nauseated the past 3-4 mornings at breakfast and lightheaded in the morning. Patient had headache, sore throat, body aches and fever initially, had reoccurrence of fever over he weekend. He continues to cough. Patient's called [place] ambulance after possible syncopal episode. Of note patient is not vaccinated. ED course: Patient 87-88% on room air, vitals otherwise stable; afebrile. No orthostatic hypotension symptoms. Lung sounds with crackles t/o. CXR indicates bilateral infiltrates consistent with infectious/inflammatory process which can be seen with atypical or viral pneumonia. BC x 2 ordered. WBC 3.96 (N 71.9%), Hgb 16.4, Plt 159. Na 137, K 3.4, BUN 15, Creatinine 0.97, LFTs WNL, Albumin 2.87, CRP 5.3, Lactic acid 1.1. Rocephin 1g given in ER for possible bacterial pneumonia. Patient admitted inpatient status. Hospital course: 12/09/20: Patient denies significant SOB or wheezing, has been coughing. He is most concerned about the nausea in the morning and the possible syncopal episode this morning. Vitals stable, afebrile. Lung sounds diminished with crackles bilaterally. Exam otherwise rather unremarkable. Repeat labs in am. 12/10/20: No calls overnight. Denies nausea this am, appetite improving. No lightheadedness symptoms or concerns of syncope today. Cough continues. Reports heartburn overnight, took prilosec for 2 weeks and then changed his diet, did not have EGD as recommended by physician in [place] due to concerns of getting COVID in hospital. Vitals stable, afebrile. Remains on 2-3L NC to maintain O2 sat > 92%. Lung sounds diminished, crackles bilaterally. No significant rhonchi or wheeze. WBC 6.78, Hgb 15.1, Plt 202. Na 139, K 4.1, BUN 15, Creatinine 0.78, Mg 2.3, LFT's WNL, CRP 5.9. BC NGTD x 1 day. Repeat labs in am. 12/11/20: Patient continues to require 2-3L by NC with no hx of pulmonary disease. D-dimer elevated at 646, obtained CTA to R/O PE which was negative for PE, however indicates ground glass opacities consistent with COVID PNA. Patient continuing to cough, will add mucinex to improve productivity of cough. Patient not sleeping well, will trial melatonin 6mg PO HS. Lung sounds remain diminished. Exam otherwise unremarkable. Hospitalization problems and plan: # COVID-19 # Pneumonia - will continue rocephin for 5 days for possible secondary bacterial pneumonia # Hypoxia # Elevated CRP - improving, 3.1 today # Elevated D-Dimer 646 - CT negative for PE - Supplemental oxygen to maintain O2 sat > 92% - BC x 2 NGTD x 2 days - Continue rocephin 1g IV daily x 5 days - Continue Remdesevir 200mg IV x 1 dose, then 100mg IV daily x 4 doses until 12/13/20 - Continue Dexamethasone 6mg PO daily - Continue Lovenox 40mg subq daily - Continue Adjunctive therapy: Zinc, vitamin C and vitamin D - Incentive spirometry 10x/hr while awake - Repeat labs in am CBC, CMP, CRP and Mg in am # Hypokalemia, mild - resolved - K 4.3 today - Repeat in am Chronic, stable conditions: # Hyperlipidiemia - no medications; LDL 109 09/04/20 # GERD - continue PPI 20mg PO daily; consider EGD as outpatient to evaluate heartburn symptoms # Obesity Hospitalization details: # FEN: Oral fluids, electrolytes stable, regular diet # PPX: Lovenox 40mg subq daily; pantoprazole 20mg PO daily # Code status: FULL CODE # Emergency contact: Karlie [phone], updated at bedside # Disposition: Patient to remain on inpatient status for treatment of above conditions. Last expected dose of remdesevir planned for 12/13/20, possible discharge Monday vs Monday based on clinical course and based on continued supplemental oxygen which would require home oxygen delivery on Monday12/14/20.
[2020-12-11] MEDS: cefTRIAXone 1 GM Vial IVPUSH SCH (11:46)
[2020-12-11] MEDS: Enoxaparin 40 MG/0.4 ML Syringe SUBCUT SCH (11:46)
[2020-12-11] MEDS: guaiFENesin 600 MG Tab.ER PO SCH ×2 (11:46→20:07)
[2020-12-11] MEDS: REMDESIVIR 100 MG in Sodium Chloride 0.9% 250 ML IV SCH (11:58)
--- NOTE | 2020-12-11 12:21 | CT ---
[id number] CT/CTA Chest EXAM: CTA Chest CLINICAL DATA: ELEVATED D-DIMER. COMPARISON STUDY: Radiograph from December 09, 2020. FINDINGS: Lungs: Scattered patchy areas of nonmass-like and geographic appearing groundglass parenchymal opacification throughout both lungs. Appearance is consistent with COVID pneumonia. No pleural effusion or pneumothorax. Mediastinum: No mediastinal or hilar lymphadenopathy. Heart and great vessels: Heart is normal in size. No pericardial effusion. Thoracic aorta is normal in caliber. Pulmonary arteries are normal in caliber. Negative for pulmonary embolus. Bones: No acute fracture or compression deformity. Spondylosis. Upper abdomen: Small sliding-type hiatus hernia. IMPRESSION: Negative for pulmonary embolus. Changes of COVID pneumonia. Other findings are described above. Robert Serrano MD 12/11/20 2206 Thank you for allowing us to participate in the care of your patient.
[2020-12-11] MEDS ORDERED: Iopamidol 755 Mg/ML 75 ML Bottle IVPUSH ONE (13:06)
[2020-12-11] MEDS ORDERED: Sodium Chloride 0.9% 100 ML IV SCH (13:15)
[2020-12-11] MEDS: Melatonin 3 MG Tab PO SCH (20:07)
[2020-12-12] MEDS: Pantoprazole 20 MG Tab, Delayed Release PO SCH ×2 (06:00→06:30)
[2020-12-12] MEDS: Cholecalciferol (Vitamin D3) 25 MCG Tab PO SCH (08:49)
[2020-12-12] MEDS: Dexamethasone 4 MG Tab PO SCH (08:49)
[2020-12-12] MEDS: Ascorbic Acid 500 MG Tab PO SCH ×2 (08:49→21:59)
[2020-12-12] MEDS: guaiFENesin 600 MG Tab.ER PO SCH ×2 (08:50→21:59)
[2020-12-12] MEDS: Zinc (Zinc Gluconate) 50 MG Tab PO SCH (08:50)
[2020-12-12 09:07] LABS: ANION GAP 16.2 mmol/L (5-15); CHLORIDE,CL 104 mmol/L (98-107); SODIUM,NA 141 mmol/L (136-145)
--- NOTE | 2020-12-12 10:12 | PCM.PN ---
- General Info Date of Service: 12/12/20 Subjective Update: Patient reports he slept better last night with the melatonin. Cough continues, but improved. Denies heartburn and questions if he can continue the PPI at home. Functional Status: Reports: Pain Controlled, Tolerating Diet, Ambulating, Urinating, Incentive Spirometry (3500ml). Denies: New Symptoms - Review of Systems General: Reports: No Symptoms HEENT: Reports: No Symptoms Pulmonary: Reports: Cough. Denies: Shortness of Breath Cardiovascular: Reports: No Symptoms Gastrointestinal: Reports: No Symptoms, Other (heartburn resolved with PPI) Genitourinary: Reports: No Symptoms Musculoskeletal: Reports: No Symptoms Skin: Reports: No Symptoms Neurological: Reports: No Symptoms Psychiatric: Reports: No Symptoms - Patient Data Vitals - Most Recent: Last Vital Signs Temp 98.4 F 12/12/20 06:18 Pulse 56 L 12/12/20 06:18 Resp 20 12/12/20 06:18 BP 125/89 12/12/20 06:18 Pulse Ox 94 L 12/12/20 06:18 Weight - Most Recent: 171 lb 1.259 oz I&O - Last 24 Hours: Intake & Output 12/11/20 12/12/20 12/12/20 22:59 06:59 14:59 Intake Total 360 100 Balance 360 100 Lab Results Last 24 Hours: Laboratory Results - last 24 hr 12/11/20 12/12/20 12/12/20 Range/Units 07:20 07:20 07:20 WBC 6.98 (5.00-10.00) 10^3/uL RBC 5.01 (4.50-6.00) 10^6/uL Hgb 14.5 (13.0-17.0) g/dL Hct 42.5 (40.0-52.0) % MCV 84.8 (82.0-92.0) fL MCH 28.9 (27.0-31.0) pg MCHC 34.1 (32.0-36.0) g/dL RDW 11.6 (11.5-14.5) % Plt Count 258 (150-400) 10^3/uL MPV 9.6 (7.4-10.4) fL Immature Gran % (Auto) 0.3 (0.0-5.0) % Neut % (Auto) 77.5 H (50.0-70.0) % Lymph % (Auto) 14.9 L (20.0-40.0) % Pettis % (Auto) 7.2 (2.0-8.0) % Eos % (Auto) 0.1 L (1.0-3.0) % Baso % (Auto) 0.0 (0.0-1.0) % Neut # (Auto) 5.41 (2.50-7.00) 10^3/uL Lymph # (Auto) 1.04 (1.00-4.00) 10^3/uL Pettis # (Auto) 0.50 (0.10-0.80) 10^3/uL Eos # (Auto) 0.01 L (0.10-0.30) 10^3/uL Baso # (Auto) 0.00 (0.00-0.10) 10^3/uL Immature Gran # (Auto) 0.02 (0.00-0.50) 10^3/uL D-Dimer, Quantitative 646 H (<400) ng/mL Sodium 141 (136-145) mmol/L Potassium 4.5 (3.5-5.1) mmol/L Chloride 104 (98-107) mmol/L Carbon Dioxide 25.3 (21.0-32.0) mmol/L Anion Gap 16.2 H (5-15) mmol/L BUN 15 (7-18) mg/dL Creatinine 0.95 (0.51-1.17) mg/dL Est Cr Clr Drug Dosing 78.35 mL/min Estimated GFR (MDRD) > 60 mL/min Glucose 101 (70-140) mg/dL Calcium 7.8 L (8.7-10.3) mg/dL Magnesium 2.1 (1.8-2.4) mg/dL Total Bilirubin 0.5 (0.2-1.0) mg/dL AST 29 (15-37) U/L ALT 57 (14-63) U/L Alkaline Phosphatase 72 (46-116) U/L C-Reactive Protein 3.2 H (0.0-0.9) mg/dL Total Protein 5.4 L (6.4-8.2) g/dL Albumin 2.66 L (3.40-5.00) g/dL Prem Results Last 24 Hours: Microbiology 12/09/20 09:35 Aerobic Blood Culture - Preliminary Blood - Venous NO GROWTH AFTER 3 DAYS Anaerobic Blood Culture - Preliminary NO GROWTH AFTER 3 DAYS 12/09/20 09:20 Aerobic Blood Culture - Preliminary Blood - Venous - Lab Draw NO GROWTH AFTER 3 DAYS Anaerobic Blood Culture - Preliminary NO GROWTH AFTER 3 DAYS Med Orders - Current: Current Medications Ascorbic Acid (Ascorbic Acid 500 Mg Tab) 1,000 mg PO BID [facility] Last Admin: 12/12/20 08:49 Dose: 1,000 mg Documented by: Ceftriaxone Sodium (Ceftriaxone 1 Gm Vial) 1 gm IVPUSH Q24H [facility] Last Admin: 12/11/20 11:46 Dose: 1 gm Documented by: Cholecalciferol (Cholecalciferol (Vitamin D3) 25 Mcg Tab) 25 mcg PO DAILY [facility] Last Admin: 12/12/20 08:49 Dose: 25 mcg Documented by: Dexamethasone (Dexamethasone 4 Mg Tab) 6 mg PO DAILY [facility] Last Admin: 12/12/20 08:49 Dose: 6 mg Documented by: Enoxaparin Sodium (Enoxaparin 40 Mg/0.4 Ml Syringe) 40 mg SUBCUT Q24H [facility] Last Admin: 12/11/20 11:46 Dose: 40 mg Documented by: Guaifenesin (Guaifenesin 600 Mg Tab.Er) 600 mg PO BID [facility] Last Admin: 12/12/20 08:50 Dose: 600 mg Documented by: Sodium Chloride (Normal Saline) 50 mls @ 125 mls/hr IV ASDIRECTED [facility] Last Admin: 12/11/20 11:56 Dose: 125 mls/hr Documented by: Remdesivir 100 mg/ Sodium (Chloride) 250 mls @ 250 mls/hr IV Q24H [facility] Stop: 12/13/20 11:31 Last Admin: 12/11/20 11:58 Dose: 250 mls/hr Documented by: Melatonin (Melatonin 3 Mg Tab) 6 mg PO BEDTIME [facility] Last Admin: 12/11/20 20:07 Dose: 6 mg Documented by: Pantoprazole Sodium (Pantoprazole 20 Mg Tab, Delayed Release) 20 mg PO ACBREAKFAST [facility] Last Admin: 12/12/20 06:30 Dose: Not Given Documented by: Simethicone (Simethicone 80 Mg Tab.Chew) 80 mg PO Q6H PRN PRN Reason: Heartburn Last Admin: 12/10/20 18:16 Dose: 80 mg Documented by: Zinc Gluconate (Zinc (Zinc Gluconate) 50 Mg Tab) 50 mg PO DAILY [facility] Last Admin: 12/12/20 08:50 Dose: 50 mg Documented by: Discontinued Medications Ceftriaxone Sodium (Ceftriaxone 1 Gm Vial) 1 gm IVPUSH ONETIME ONE Stop: 12/09/20 09:46 Last Admin: 12/09/20 10:21 Dose: 1 gm Documented by: Remdesivir 200 mg/ Sodium (Chloride) 250 mls @ 250 mls/hr IV ONETIME ONE Stop: 12/09/20 11:27 Last Admin: 12/09/20 13:02 Dose: 250 mls/hr Documented by: Sodium Chloride (Normal Saline) 100 mls @ 200 mls/hr IV ASDIRECTED [facility] Last Admin: 12/11/20 11:07 Dose: 200 mls/hr Documented by: Iopamidol (Iopamidol 755 Mg/Ml 75 Ml Bottle) 75 ml IVPUSH ONETIME ONE Stop: 12/11/20 13:07 Last Admin: 12/11/20 11:07 Dose: 75 ml Documented by: Potassium Chloride (Potassium Chloride 10 Meq Tab.Er) 20 meq PO ONETIME ONE Stop: 12/09/20 11:29 Last Admin: 12/09/20 12:04 Dose: 20 meq Documented by: - Exam Quality Assessment: Supplemental Oxygen (94% on 1L, trial on room air this am ) General: Alert, Oriented, Cooperative, No Acute Distress HEENT: Pupils Equal, Pupils Reactive, Mucous Membr. Moist/[place] Neck: Supple, Trachea Midline Lungs: Decreased Breath Sounds. No: Crackles, Rhonchi, Wheezing Cardiovascular: Regular Rate, Regular Rhythm, No Murmurs GI/Abdominal Exam: Normal Bowel Sounds, Soft, Non-Tender, No Distention (Male) Exam: Deferred Back Exam: Normal Inspection, Full Range of Motion Extremities: Normal Inspection, Normal Range of Motion, Non-Tender, No Pedal Edema, Normal Capillary Refill Peripheral Pulses: 2+: Dorsalis Pedis (L), Dorsalis Pedis (R) Skin: Warm, Dry, Intact Neurological: No New Focal Deficit Psy/Mental Status: Alert, Normal Affect, Normal Mood - Patient Data Lab Results Last 24 hrs: Laboratory Results - last 24 hr 11/06/2612/12/20 12/12/20 Range/Units 07:20 07:20 07:20 WBC 6.98 (5.00-10.00) 10^3/uL RBC 5.01 (4.50-6.00) 10^6/uL Hgb 14.5 (13.0-17.0) g/dL Hct 42.5 (40.0-52.0) % MCV 84.8 (82.0-92.0) fL MCH 28.9 (27.0-31.0) pg MCHC 34.1 (32.0-36.0) g/dL RDW 11.6 (11.5-14.5) % Plt Count 258 (150-400) 10^3/uL MPV 9.6 (7.4-10.4) fL Immature Gran % (Auto) 0.3 (0.0-5.0) % Neut % (Auto) 77.5 H (50.0-70.0) % Lymph % (Auto) 14.9 L (20.0-40.0) % Pettis % (Auto) 7.2 (2.0-8.0) % Eos % (Auto) 0.1 L (1.0-3.0) % Baso % (Auto) 0.0 (0.0-1.0) % Neut # (Auto) 5.41 (2.50-7.00) 10^3/uL Lymph # (Auto) 1.04 (1.00-4.00) 10^3/uL Pettis # (Auto) 0.50 (0.10-0.80) 10^3/uL Eos # (Auto) 0.01 L (0.10-0.30) 10^3/uL Baso # (Auto) 0.00 (0.00-0.10) 10^3/uL Immature Gran # (Auto) 0.02 (0.00-0.50) 10^3/uL D-Dimer, Quantitative 646 H (<400) ng/mL Sodium 141 (136-145) mmol/L Potassium 4.5 (3.5-5.1) mmol/L Chloride 104 (98-107) mmol/L Carbon Dioxide 25.3 (21.0-32.0) mmol/L Anion Gap 16.2 H (5-15) mmol/L BUN 15 (7-18) mg/dL Creatinine 0.95 (0.51-1.17) mg/dL Est Cr Clr Drug Dosing 78.35 mL/min Estimated GFR (MDRD) > 60 mL/min Glucose 101 (70-140) mg/dL Calcium 7.8 L (8.7-10.3) mg/dL Magnesium 2.1 (1.8-2.4) mg/dL Total Bilirubin 0.5 (0.2-1.0) mg/dL AST 29 (15-37) U/L ALT 57 (14-63) U/L Alkaline Phosphatase 72 (46-116) U/L C-Reactive Protein 3.2 H (0.0-0.9) mg/dL Total Protein 5.4 L (6.4-8.2) g/dL Albumin 2.66 L (3.40-5.00) g/dL Result Diagrams: 12/12/20 07:20 12/12/20 07:20 Prem Results Last 24 hrs: Microbiology 12/09/20 09:35 Aerobic Blood Culture - Preliminary Blood - Venous NO GROWTH AFTER 3 DAYS Anaerobic Blood Culture - Preliminary NO GROWTH AFTER 3 DAYS 12/09/20 09:20 Aerobic Blood Culture - Preliminary Blood - Venous - Lab Draw NO GROWTH AFTER 3 DAYS Anaerobic Blood Culture - Preliminary NO GROWTH AFTER 3 DAYS Sepsis Event Note - Evaluation Sepsis Screening Result: No Definite Risk - Focused Exam Vital Signs: Vital Signs Temp Pulse Resp BP Pulse Ox 12/12/20 06:18 98.4 F 56 L 20 125/89 94 L 12/12/20 03:00 97.2 F 58 L 20 125/76 91 L 12/11/20 22:49 97.5 F 61 20 128/84 96 - Problem List Review Problem List Initiated/Reviewed/Updated: Yes - My Orders Last 24 Hours: My Active Orders 12/11/20 10:45 guaiFENesin [Mucinex] 600 mg PO BID 12/11/20 21:00 Melatonin 6 mg PO BEDTIME - Plan Plan:: HPI summary: Christopher is a 55yM patient who arrived to the ED by EMS this morning for concerns of COVID-19 symptoms including nausea and vomiting this morning a fter breakfast and reported syncopal episode of short duration. Patient had initial onset of COVID symptoms on 11/29 and tested positive on 12/04 at [facility]. Patient c/o feeling nauseated the past 3-4 mornings at breakfast and lightheaded in the morning. Patient had headache, sore throat, body aches and fever initially, had reoccurrence of fever over he weekend. He continues to cough. Patient's called [facility] after possible syncopal episode. Of note patient is not vaccinated. ED course: Patient 87-88% on room air, vitals otherwise stable; afebrile. No orthostatic hypotension symptoms. Lung sounds with crackles t/o. CXR indicates bilateral infiltrates consistent with infectious/inflammatory process which can be seen with atypical or viral pneumonia. BC x 2 ordered. WBC 3.96 (N 71.9%), Hgb 16.4, Plt 159. Na 137, K 3.4, BUN 15, Creatinine 0.97, LFTs WNL, Albumin 2.87, CRP 5.3, Lactic acid 1.1. Rocephin 1g given in ER for possible bacterial pneumonia. Patient admitted inpatient status. Hospital course: 12/09/20: Patient denies significant SOB or wheezing, has been coughing. He is most concerned about the nausea in the morning and the possible syncopal episode this morning. Vitals stable, afebrile. Lung sounds diminished with crackles bilaterally. Exam otherwise rather unremarkable. Repeat labs in am. 12/10/20: No calls overnight. Denies nausea this am, appetite improving. No lightheadedness symptoms or concerns of syncope today. Cough continues. Reports heartburn overnight, took prilosec for 2 weeks and then changed his diet, did not have EGD as recommended by physician in [place] due to concerns of getting COVID in hospital. Vitals stable, afebrile. Remains on 2-3L NC to maintain O2 sat > 92%. Lung sounds diminished, crackles bilaterally. No significant rh onchi or wheeze. WBC 6.78, Hgb 15.1, Plt 202. Na 139, K 4.1, BUN 15, Crea tinine 0.78, Mg 2.3, LFT's WNL, CRP 5.9. BC NGTD x 1 day. Repeat labs in am. 12/11/20: Patient continues to require 2-3L by NC with no hx of pulmonary disease. D-dimer elevated at 646, obtained CTA to R/O PE which was negative for PE, however indicates ground glass opacities consistent with COVID PNA. Patient continuing to cough, will add mucinex to improve productivity of cough. Patient not sleeping well, will trial melatonin 6mg PO HS. Lung sounds remain diminished. Exam otherwise unremarkable. 12/12/20: No new concerns. 94% on 1L, trial on room air this morning. Lung sounds rather clear, exam otherwise unremarkable. Vitals stable, afebrile. Labs essentially unchanged. BC NGTD x 3 days. CTA chest yesterday negative for PE - did indicate COVID pneumonia with ground glass opacities bilaterally. Day 4/5 of remdesevir today. Hospitalization problems and plan: # COVID-19 # Pneumonia - will continue rocephin for 5 days for possible secondary bacterial pneumonia # Hypoxia # Elevated CRP - stable, 3.2 today # Elevated D-Dimer 646 - CT negative for PE - bilateral ground glass opacities, COVID PNA - Supplemental oxygen to maintain O2 sat > 92% - BC x 2 NGTD x 3 days - Continue rocephin 1g IV daily x 5 days - Continue Remdesevir 200mg IV x 1 dose, then 100mg IV daily x 4 doses until 12/13/20 - Continue Dexamethasone 6mg PO daily - Continue Lovenox 40mg subq daily - Continue Adjunctive therapy: Zinc, vitamin C and vitamin D - Incentive spirometry 10x/hr while awake - Continue mucinex BID for cough - Repeat labs in am CBC, CMP, CRP and Mg in am # Hypokalemia, mild - resolved - K 4.5 today - Repeat in am Chronic, stable conditions: # Hyperlipidiemia - no medications; LDL 109 09/04/20 # GERD - continue PPI 20mg PO daily; consider EGD as outpatient to evaluate h eartburn symptoms - plan to DC on PPI # Obesity Hospitalization details: # FEN: Oral fluids, electrolytes stable, regular diet # PPX: Lovenox 40mg subq daily; pantoprazole 20mg PO daily # Code status: FULL CODE # Emergency contact: Karlie Beyer [phone], updated at bedside # Disposition: Patient to remain on inpatient status for treatment of above conditions. Last expected dose of remdesevir planned for 12/13/20, possible discharge tomorrow if stable on room air, would need to continue hospitalization if he would need to have home O2 delivered on Monday if he continues to require supplemental O2.
[2020-12-12] MEDS: Enoxaparin 40 MG/0.4 ML Syringe SUBCUT SCH (11:24)
[2020-12-12] MEDS: cefTRIAXone 1 GM Vial IVPUSH SCH (11:24)
[2020-12-12] MEDS: REMDESIVIR 100 MG in Sodium Chloride 0.9% 250 ML IV SCH (11:27)
[2020-12-12] MEDS: Melatonin 3 MG Tab PO SCH (21:59)
[2020-12-13] MEDS: Pantoprazole 20 MG Tab, Delayed Release PO SCH ×2 (06:07→06:31)
[2020-12-13 08:17] LABS: ANION GAP 14.4 mmol/L (5-15); CHLORIDE,CL 103 mmol/L (98-107); SODIUM,NA 140 mmol/L (136-145)
[2020-12-13] MEDS: Ascorbic Acid 500 MG Tab PO SCH (08:23)
[2020-12-13] MEDS: Cholecalciferol (Vitamin D3) 25 MCG Tab PO SCH (08:23)
[2020-12-13] MEDS: guaiFENesin 600 MG Tab.ER PO SCH (08:23)
[2020-12-13] MEDS: Zinc (Zinc Gluconate) 50 MG Tab PO SCH (08:24)
[2020-12-13] MEDS: Dexamethasone 4 MG Tab PO SCH (08:24)
[2020-12-13] MEDS: cefTRIAXone 1 GM Vial IVPUSH SCH (10:45)
[2020-12-13] MEDS: REMDESIVIR 100 MG in Sodium Chloride 0.9% 250 ML IV SCH (10:50)
[2020-12-13] MEDS: Enoxaparin 40 MG/0.4 ML Syringe SUBCUT SCH (10:52)
--- NOTE | 2020-12-13 11:25 | PCM.DCSUM1 ---
Discharge Summary - Hospital Course Free Text/Narrative:: Date of admission: 12/09/20 Date of discharge: 12/13/20 Admission diagnoses: # COVID-19 # Pneumonia - likely viral given CT results indicating ground glass opacities # Hypoxia # Elevated CRP - stable, 3.0 today # Elevated D-Dimer 646 - CT negative for PE - bilateral ground glass opacities, COVID PNA # Hypokalemia, mild - resolved Discharge diagnoses: # Hyperlipidiemia - no medications; LDL 109 09/04/20 # GERD - continue PPI 20mg PO daily; consider EGD as outpatient to evaluate heartburn symptoms - plan to DC on PPI # Obesity HPI summary: Christopher is a 55yM patient who arrived to the ED by EMS this morning for concerns of COVID-19 symptoms including nausea and vomiting this morning after breakfast and reported syncopal episode of short duration. Patient had initial onset of COVID symptoms on 11/29 and tested positive on 12/04 at [facility]. Patient c/o feeling nauseated the past 3-4 mornings at breakfast and lightheaded in the morning. Patient had headache, sore throat, body aches and fever initially, had reoccurrence of fever over he weekend. He continues to cough. Patient's called [facility] after possible syncopal episode. Of note patient is not vaccinated. ED course: Patient 87-88% on room air, vitals otherwise stable; afebrile. No orthostatic hypotension symptoms. Lung sounds with crackles t/o. CXR indicates bilateral infiltrates consistent with infectious/inflammatory process which can be seen with atypical or viral pneumonia. BC x 2 ordered. WBC 3.96 (N 71.9%), Hgb 16.4, Plt 159. Na 137, K 3.4, BUN 15, Creatinine 0.97, LFTs WNL, Albumin 2.87, CRP 5.3, Lactic acid 1.1. Rocephin 1g given in ER for possible bacterial pneumonia. Patient admitted inpatient status. Hospital course: 12/09/20: Patient denies significant SOB or wheezing, has been coughing. He is most concerned about the nausea in the morning and the possible syncopal episode this morning. Vitals stable, afebrile. Lung sounds diminished with crackles bilaterally. Exam otherwise rather unremarkable. Repeat labs in am. 12/10/20: No calls overnight. Denies nausea this am, appetite improving. No lightheadedness symptoms or concerns of syncope today. Cough continues. Reports heartburn overnight, took prilosec for 2 weeks and then changed his diet, did not have EGD as recommended by physician in [place] due to concerns of getting COVID in hospital. Vitals stable, afebrile. Remains on 2-3L NC to maintain O2 sat > 92%. Lung sounds diminished, crackles bilaterally. No significant rhonchi or wheeze. WBC 6.78, Hgb 15.1, Plt 202. Na 139, K 4.1, BUN 15, Creatinine 0.78, Mg 2.3, LFT's WNL, CRP 5.9. BC NGTD x 1 day. Repeat labs in am. 12/11/20: Patient continues to require 2-3L by NC with no hx of pulmonary disease. D-dimer elevated at 646, obtained CTA to R/O PE which was negative for PE, however indicates ground glass opacities consistent with COVID PNA. Patient continuing to cough, will add mucinex to improve productivity of cough. Patient not sleeping well, will trial melatonin 6mg PO HS. Lung sounds remain diminished. Exam otherwise unremarkable. 12/12/20: No new concerns. 94% on 1L, trial on room air this morning. Lung sounds rather clear, exam otherwise unremarkable. Vitals stable, afebrile. Labs essentially unchanged. BC NGTD x 3 days. CTA chest yesterday negative for PE - did indicate COVID pneumonia with ground glass opacities bilaterally. Day 4/5 of remdesevir today. 12/13/20: No new symptoms, sitting up in recliner on room air this morning. No nausea, lightheadedness, or heartburn symptoms. He has been ambulating in the room on room air without increased respiratory symptoms. Vitals stable, remains afebrile, O2 97% on room air, 94-96% with activity. Labs overall unremarkable, CRP down to 2.0 today. IS to 3500ml. Lung sounds rather clear today. Will plan to discharge home today without home oxygen. Discharge and follow-up recommendations: - Discharge to home per self care - New medications at discharge: Continue mucinex 600mg PO BID, melatonin at HS, PPI for heartburn symptoms - Continue incentive spirometry 10x/hr while awake - Follow-up at [facility] next week for hospital follow-up ( - Monday) - Discharge Data Discharge Date: 12/13/20 Discharge Disposition: Home, Self-Care 01 Condition: Good - Referral to Home Health Primary Care Physician: PCP None - Patient Instructions Diet: Usual Diet as Tolerated Driving: Do Not Drive Showering/Bathing: May Shower Other/Special Instructions: Continue incentive spirometry 10x/hr while awake. Continue to monitor oxygen saturation and notify the clinic of < 92% - Discharge Plan *PRESCRIPTION DRUG MONITORING PROGRAM REVIEWED*: Not Applicable *COPY OF PRESCRIPTION DRUG MONITORING REPORT IN PATIENT LIZ: Not Applicable Prescriptions/Med Rec: Omeprazole 20 mg PO DAILY #30 tablet. Home Medications: Home Meds Melatonin 6 mg PO BEDTIME tablet 12/13/20 [Rx] Omeprazole 20 mg PO DAILY #30 tablet. 12/13/20 [Rx] guaiFENesin [Mucinex] 600 mg PO BID tab.er 12/13/20 [Rx] Oxygen Therapy Mode: Room Air Referrals: Kathleen Motta WELDING MACHINE OPERATOR RESISTANCE [Nurse Practitioner] - (Please call the [facility] Monday to schedule an appointment with Kathleen Motta APRN, CNP later in the week (-Mon). [phone]) - Discharge Summary/Plan Comment DC Time >30 min.: Yes Total # of Minutes for Discharge Time: 35 - General Info Date of Service: 12/13/20 Subjective Update: Patient sitting up in recliner on room air. Patient reports he is feeling better and hoping to discharge home today. Functional Status: Reports: Pain Controlled, Tolerating Diet, Ambulating, Urin ating, Incentive Spirometry (3500ml). Denies: New Symptoms - Review of Systems General: Reports: No Symptoms HEENT: Reports: No Symptoms Pulmonary: Reports: Cough. Denies: Shortness of Breath, Wheezing Cardiovascular: Reports: No Symptoms. Denies: Lightheadedness Gastrointestinal: Reports: No Symptoms, Other (Denies heartburn) Genitourinary: Reports: No Symptoms Musculoskeletal: Reports: No Symptoms Skin: Reports: No Symptoms Neurological: Reports: No Symptoms. Denies: Dizziness, Syncope Psychiatric: Reports: No Symptoms - Patient Data Vitals - Most Recent: Last Vital Signs Temp 97.4 F 12/13/20 10:53 Pulse 63 12/13/20 10:53 Resp 16 12/13/20 10:53 BP 136/83 12/13/20 10:53 Pulse Ox 97 12/13/20 10:53 Weight - Most Recent: 171 lb 1.259 oz I&O - Last 24 hours: Intake & Output 12/12/20 12/13/20 12/13/20 23:59 06:59 14:59 Intake Total Balance Lab Results - Last 24 hrs: Laboratory Results - last 24 hr 12/13/20 12/13/20 Range/Units 07:40 07:40 WBC 8.44 (5.00-10.00) 10^3/uL RBC 5.15 (4.50-6.00) 10^6/uL Hgb 14.9 (13.0-17.0) g/dL Hct 43.2 (40.0-52.0) % MCV 83.9 (82.0-92.0) fL MCH 28.9 (27.0-31.0) pg MCHC 34.5 (32.0-36.0) g/dL RDW 11.7 (11.5-14.5) % Plt Count 268 (150-400) 10^3/uL MPV 9.5 (7.4-10.4) fL Immature Gran % (Auto) 0.5 (0.0-5.0) % Neut % (Auto) 79.2 H (50.0-70.0) % Lymph % (Auto) 14.2 L (20.0-40.0) % [place] % (Auto) 5.9 (2.0-8.0) % Eos % (Auto) 0.2 L (1.0-3.0) % Baso % (Auto) 0.0 (0.0-1.0) % Neut # (Auto) 6.68 (2.50-7.00) 10^3/uL Lymph # (Auto) 1.20 (1.00-4.00) 10^3/uL [place] # (Auto) 0.50 (0.10-0.80) 10^3/uL Eos # (Auto) 0.02 L (0.10-0.30) 10^3/uL Baso # (Auto) 0.00 (0.00-0.10) 10^3/uL Immature Gran # (Auto) 0.04 (0.00-0.50) 10^3/uL Sodium 140 (136-145) mmol/L Potassium 4.2 (3.5-5.1) mmol/L Chloride 103 (98-107) mmol/L Carbon Dioxide 26.8 (21.0-32.0) mmol/L Anion Gap 14.4 (5-15) mmol/L BUN 16 (7-18) mg/dL Creatinine 0.87 (0.51-1.17) mg/dL Est Cr Clr Drug Dosing 85.56 mL/min Estimated GFR (MDRD) > 60 mL/min Glucose 89 (70-140) mg/dL Calcium 8.3 L (8.7-10.3) mg/dL Magnesium 2.1 (1.8-2.4) mg/dL Total Bilirubin 0.6 (0.2-1.0) mg/dL AST 25 (15-37) U/L ALT 55 (14-63) U/L Alkaline Phosphatase 71 (46-116) U/L C-Reactive Protein 2.0 H (0.0-0.9) mg/dL Total Protein 6.2 L (6.4-8.2) g/dL Albumin 2.68 L (3.40-5.00) g/dL MENG Results - Last 24 hrs: Microbiology 12/09/20 09:35 Aerobic Blood Culture - Preliminary Blood - Venous NO GROWTH AFTER 4 DAYS Anaerobic Blood Culture - Preliminary NO GROWTH AFTER 4 DAYS 12/09/20 09:20 Aerobic Blood Culture - Preliminary Blood - Venous - Lab Draw NO GROWTH AFTER 4 DAYS Anaerobic Blood Culture - Preliminary NO GROWTH AFTER 4 DAYS Med Orders - Current: Current Medications Ascorbic Acid (Ascorbic Acid 500 Mg Tab) 1,000 mg PO BID [facility] Last Admin: 12/13/20 08:23 Dose: 1,000 mg Documented by: Ceftriaxone Sodium (Ceftriaxone 1 Gm Vial) 1 gm IVPUSH Q24H [facility] Last Admin: 12/13/20 10:45 Dose: 1 gm Documented by: Cholecalciferol (Cholecalciferol (Vitamin D3) 25 Mcg Tab) 25 mcg PO DAILY [facility] Last Admin: 12/13/20 08:23 Dose: 25 mcg Documented by: Dexamethasone (Dexamethasone 4 Mg Tab) 6 mg PO DAILY [facility] Last Admin: 12/13/20 08:24 Dose: 6 mg Documented by: Enoxaparin Sodium (Enoxaparin 40 Mg/0.4 Ml Syringe) 40 mg SUBCUT Q24H [facility] Last Admin: 12/13/20 10:52 Dose: 40 mg Documented by: Guaifenesin (Guaifenesin 600 Mg Tab.Er) 600 mg PO BID [facility] Last Admin: 12/13/20 08:23 Dose: 600 mg Documented by: Sodium Chloride (Normal Saline) 50 mls @ 125 mls/hr IV ASDIRECTED [facility] Last Admin: 12/11/20 11:56 Dose: 125 mls/hr Documented by: Remdesivir 100 mg/ Sodium (Chloride) 250 mls @ 250 mls/hr IV Q24H [facility] Stop: 12/13/20 11:31 Last Admin: 12/13/20 10:50 Dose: 250 mls/hr Documented by: Melatonin (Melatonin 3 Mg Tab) 6 mg PO BEDTIME [facility] Last Admin: 12/12/20 21:59 Dose: 6 mg Documented by: Pantoprazole Sodium (Pantoprazole 20 Mg Tab, Delayed Release) 20 mg PO ACBREAKFAST [facility] Last Admin: 12/13/20 06:31 Dose: Not Given Documented by: Simethicone (Simethicone 80 Mg Tab.Chew) 80 mg PO Q6H PRN PRN Reason: Heartburn Last Admin: 12/10/20 18:16 Dose: 80 mg Documented by: Zinc Gluconate (Zinc (Zinc Gluconate) 50 Mg Tab) 50 mg PO DAILY [facility] Last Admin: 12/13/20 08:24 Dose: 50 mg Documented by: Discontinued Medications Ceftriaxone Sodium (Ceftriaxone 1 Gm Vial) 1 gm IVPUSH ONETIME ONE Stop: 12/09/20 09:46 Last Admin: 12/09/20 10:21 Dose: 1 gm Documented by: Remdesivir 200 mg/ Sodium (Chloride) 250 mls @ 250 mls/hr IV ONETIME ONE Stop: 12/09/20 11:27 Last Admin: 12/09/20 13:02 Dose: 250 mls/hr Documented by: Sodium Chloride (Normal Saline) 100 mls @ 200 mls/hr IV ASDIRECTED [facility] Last Admin: 12/11/20 11:07 Dose: 200 mls/hr Documented by: Iopamidol (Iopamidol 755 Mg/Ml 75 Ml Bottle) 75 ml IVPUSH ONETIME ONE Stop: 12/11/20 13:07 Last Admin: 12/11/20 11:07 Dose: 75 ml Documented by: Potassium Chloride (Potassium Chloride 10 Meq Tab.Er) 20 meq PO ONETIME ONE Stop: 12/09/20 11:29 Last Admin: 12/09/20 12:04 Dose: 20 meq Documented by: - Exam Quality Assessment: Reports: DVT Prophylaxis. Denies: Supplemental Oxygen General: Reports: Alert, Oriented, Cooperative, No Acute Distress HEENT: Reports: Pupils Equal, Pupils Reactive, Mucous Membr. Moist/[place] Neck: Reports: Supple, Trachea Midline Lungs: Reports: Decreased Breath Sounds. Denies: Crackles, Rhonchi, Wheezing Cardiovascular: Reports: Regular Rate, Regular Rhythm, No Murmurs GI/Abdominal Exam: Normal Bowel Sounds, Soft, Non-Tender, No Distention (Male) Exam: Deferred Rectal (Males) Exam: Deferred Back Exam: Reports: Normal Inspection, Full Range of Motion Extremities: Normal Inspection, Normal Range of Motion, Non-Tender, No Pedal Edema, Normal Capillary Refill Skin: Reports: Warm, Dry, Intact Neurological: Reports: No New Focal Deficit Psy/Mental Status: Reports: Alert, Normal Affect, Normal Mood
== END 2020-12-13 13:20 | disposition home or self-care (01) | DRG 137 ==
LOC: KA.ED 08:41 → KA.MS 09:52
PROVIDERS: ADMIT Family Medicine; ATTEND Family Medicine
PROC: 8E0ZXY6 Isolation (ICD-10-PCS; principal; 2020-12-09)
PROC: XW033E5 Introduction of Remdesivir Anti-infective into Peripheral Vein, Percutaneous Approach, New Technology Group 5 (ICD-10-PCS; 2020-12-09)
PROC: 3E0DX3Z Introduction of Anti-inflammatory into Mouth and Pharynx, External Approach (ICD-10-PCS; 2020-12-09)
DX: U07.1 COVID-19 (principal); J12.82 Pneumonia due to coronavirus disease 2019; J15.9 Unspecified bacterial pneumonia; E87.6 Hypokalemia; K21.9 Gastro-esophageal reflux disease without esophagitis; E78.5 Hyperlipidemia, unspecified; E66.9 Obesity, unspecified; Z68.27 Body mass index [BMI] 27.0-27.9, adult
CPT/HCPCS: 36415; 71046; 71275; 80053; 83605; 83735; 85025; 85379; 86140; 87040; 99283; 99285-25; A9270-GY; J0696; J1650; J7050; J8540; Q9967

== ENCOUNTER 2021-02-15 06:59 | Day surgery (SDC) | payer BC ==
[2021-02-15] MEDS: Lactated Ringers 1,000 ML IV SCH (07:14)
[2021-02-15] MEDS ORDERED: Lidocaine 2% 5 ML SDV ONE (07:52)
[2021-02-15] MEDS ORDERED: Glycopyrrolate 0.2 MG/ML SDV ONE (07:52)
[2021-02-15] MEDS ORDERED: Propofol 200 MG/20 ML SDV ONE (07:52)
[2021-02-15] MEDS ORDERED: Midazolam 1 MG/ML 2 ML SDV ONE (07:52)
--- NOTE | 2021-02-15 08:05 | PCM.HP.2 ---
H&P History of Present Illness - General Date of Service: 02/15/21 Source of Information: Patient, Old Records History Limitations: Reports: No Limitations - History of Present Illness Initial Comments - Free Text/Narative: 55yoM with a history of persistent GERD sxs. Took omeprazole daily on an empty stomach for a few weeks with benefit, but not complete resolution. No hx of endoscopy. No hx of nausea, emesis, regurgitation, dysphagia. No hx of UGI malignancy in family. Hx of COVID 01/2021 for which he was hospitalized. - Related Data Allergies/Adverse Reactions: Allergies Allergy/AdvReac Type Severity Reaction Status Date / Time No Known Drug Allergies Allergy Other Verified 02/12/21 13:57 Home Medications: Home Meds Omeprazole 20 mg PO DAILY #30 tablet. 12/13/20 [Rx] Past Medical History - Past Health History Medical/Surgical History: Denies Medical/Surgical History HEENT History: Reports: None Cardiovascular History: Reports: None Respiratory History: Reports: None Gastrointestinal History: Reports: None Other Gastrointestinal History: Bright Red blood after BM x 1 Genitourinary History: Reports: None Musculoskeletal History: Reports: None Neurological History: Reports: None Psychiatric History: Reports: None Endocrine/Metabolic History: Reports: None Hematologic History: Reports: None Immunologic History: Reports: None Oncologic (Cancer) History: Reports: None Dermatologic History: Reports: None - Infectious Disease History Infectious Disease History: Reports: Chicken Pox, Novel Coronavirus Social & Family History - Family History GI: Reports: Colon Polyps - Tobacco Use Tobacco Use Status *Q: Never Tobacco User Second Hand Smoke Exposure: No - Caffeine Use Caffeine Use: Reports: Coffee H&P Review of Systems - Review of Systems: Review Of Systems: Comprehensive ROS is negative, except as noted in HPI. Exam - Exam Exam: See Below - Vital Signs Vital Signs: Last Vital Signs Temp 36.1 C 02/15/21 07:05 Pulse 66 02/15/21 07:05 Resp 19 02/15/21 07:05 BP 128/81 02/15/21 07:05 Pulse Ox 96 02/15/21 07:05 Weight: 78.018 kg - Exam General: Alert, Oriented HEENT: Conjunctiva Clear Neck: Supple, Trachea Midline Lungs: Clear to Auscultation, Normal Respiratory Effort Cardiovascular: Regular Rate, Regular Rhythm GI/Abdominal Exam: Normal Bowel Sounds, Soft, Non-Tender, No Organomegaly Extremities: No Pedal Edema Skin: Warm, Dry Sepsis Event Note - Focused Exam Vital Signs: Vital Signs Temp Pulse Resp BP Pulse Ox 02/15/21 07:05 36.1 C 66 19 128/81 96 Problem List Initiated/Reviewed/Updated: Yes Orders Last 24hrs: Active Orders 24 hr Category Date Time Status Patient to Empty Bladder [RC] ASDIRECTED Care 02/15/21 07:00 Active Peripheral IV Care [RC] . DIRECTED Care 02/15/21 07:00 Active Verify Patient Consent Obtain [RC] ASDIRECTED Care 02/15/21 08:00 Active Nothing Per Oral Diet [DIET] Diet 02/15/21 Breakfast Active Lactated Ringers [Ringers, Lactated] 1,000 ml Med 02/15/21 07:00 Active IV ASDIRECTED Peripheral IV Insertion Adult [OM.PC] Routine Oth 02/15/21 07:00 Ordered Medication Orders Lactated Ringer's (Ringers, Lactated) 1,000 mls @ 50 mls/hr IV ASDIRECTED [facility] Last Admin: 02/15/21 07:14 Dose: 50 mls/hr Documented by: HAYLEE Assessment/Plan Comment:: 55yoM with a history of persistent GERD sxs not resolved with PPI. Discussed recommendation for further evaluation with EGD, including benefits, risks, and alternatives. He wishes to proceed for which there are no contraindications.
--- NOTE | 2021-02-15 08:38 | PCM.PRNOTE ---
- Free Text/Narrative Note: PROCEDURE PERFORMED: Esophagogastroduodenoscopy with biopsy PRE-PROCEDURE DIAGNOSIS/INDICATION FOR PROCEDURE: Persistent reflux symptoms despite PPI CONSENT: Informed consent was obtained prior to the procedure after discussion of the risks (including pain, bleeding, infection, perforation, need for further procedures, adverse reaction to anesthesia, cardiovascular event), benefits and alternatives and expected outcomes. Verbal consent given and consent form signed. PROCEDURAL PAUSE: Completed SEDATION: Per anesthesia DESCRIPTION OF PROCEDURE: Patient was brought back to the operating room and placed in a left lateral decubitus position. Bite block placed. After adequate sedation and anesthetic was administered, endoscope was inserted into the patient's mouth and was passed easily through the esophagus and stomach into the duodenum without difficulty. Examined duodenum mild inflammation for which cold forceps biopsies obtained. Stomach, including viewing in retroflexion, with mild inflammation for which cold forceps biopsies obtained. 5cm sliding hiatal hernia was present with the gastroesophageal junction at 34cm from the incisors and diaphragmatic pinch at 39cm. Esophagus normal appearing. The scope was removed without difficulty. Patient tolerated the procedure well. No complications. IMPRESSION: Esophagogastroduodenoscopy performed revealing: - Mild gastritis and duodenitis, pathology now pending - 5cm sliding hiatal hernia PLAN: Will contact the patient when pathology results received. Discussed appropriate administration of antacid medication.
== END 2021-02-15 10:05 | disposition home or self-care (01) ==
LOC: KA.SDS 06:59
PROVIDERS: ATTEND Family Medicine
DX: K29.90 Gastroduodenitis, unspecified, without bleeding (principal); K44.9 Diaphragmatic hernia without obstruction or gangrene; K21.9 Gastro-esophageal reflux disease without esophagitis; E66.9 Obesity, unspecified; E78.5 Hyperlipidemia, unspecified; Z79.899 Other long term (current) drug therapy; Z68.28 Body mass index [BMI] 28.0-28.9, adult
CPT/HCPCS: 00731; J2250; J2704; J3490; J7120

== ENCOUNTER 2021-04-03 19:16 | Emergency (ER) | payer BC ==
[2021-04-03] MEDS ORDERED: Ondansetron 4 MG/2 ML SDV IVPUSH ONE (19:45)
[2021-04-03] MEDS ORDERED: Sodium Chloride 0.9% 10 ML Syringe FLUSH PRN (19:45)
[2021-04-03] MEDS ORDERED: Sodium Chloride 0.9% 1,000 ML IV ONE (19:46)
[2021-04-03 20:38] LABS: ANION GAP 11.8 mmol/L (5-15); CHLORIDE,CL 103 mmol/L (98-107); SODIUM,NA 138 mmol/L (136-145)
[2021-04-03 21:05] LABS: CORONAVIRUS COVID-19 NAA NEGATIVE (NEGATIVE)
[2021-04-03] MEDS ORDERED: Ondansetron 4 MG Tab.DIS PO PRN (21:22)
== END 2021-04-03 21:36 | disposition home or self-care (01) ==
LOC: KA.ED 19:16
DX: R55 Syncope and collapse (principal); R53.81 Other malaise; R11.0 Nausea; Z20.822 Contact with and (suspected) exposure to COVID-19
CPT/HCPCS: 0240U; 36415; 71046; 80053; 84484; 85025; 93010; 96374; 99284; 99284-25; J2405; J7030